=== PATIENT | female | born 1960 | race Caucasian/White ===

== ENCOUNTER 2017-10-18 08:33 | Inpatient (IN) | payer OTHER ==
[2017-10-18 11:12] LABS: BASOPHILS # (AUTO) 0.1 X10^3/uL (0.0-0.1); BASOPHILS % (AUTO) 0.4 % (0.2-1.0); EOSINOPHILS # (AUTO) 0.1 x10^3/uL (0.0-0.2); EOSINOPHILS % (AUTO) 0.9 % (0.9-2.9); HEMATOCRIT 35.1 % (36.0-47.0); HEMOGLOBIN 11.4 g/dL (12.0-16.0); LYMPHOCYTES # (AUTO) 2.7 X10^3/uL (1.3-2.9); LYMPHOCYTES % (AUTO) 22.5 % (21.0-51.0); MEAN CORPUSCULAR HEMOGLOBIN 22.6 pg (27.0-34.0); MEAN CORPUSCULAR HGB CONC 32.5 g/dL (33.0-35.0); MEAN CORPUSCULAR VOLUME 69.4 fL (80.0-100.0); MEAN PLATELET VOLUME 8.2 fL (7.4-11.0); MONOCYTES % (AUTO) 8.6 % (0.0-13.0); NEUTROPHILS # (AUTO) 8.2 x10^3/uL (2.2-4.8); NEUTROPHILS % (AUTO) 67.6 % (42.0-75.0); PLATELET COUNT 244 X10^3/uL (150.0-450.0); RED BLOOD COUNT 5.06 X10^6/uL (3.5-5.4); RED CELL DISTRIBUTION WIDTH 19.3 % (11.6-16.5); WHITE BLOOD COUNT 12.1 X10^3/uL (3.6-10.0)
[2017-10-18 11:25] LABS: ALANINE AMINOTRANSFERASE 23 Units/L (12-78); ALBUMIN 3.2 g/dL (3.4-5.0); ALKALINE PHOSPHATASE 102 Units/L (46-116); ASPARTATE AMINO TRANSFERASE 22 Units/L (15-37); BLOOD UREA NITROGEN 6 mg/dL (7-18); CALCIUM 9.2 mg/dL (8.5-10.1); CARBON DIOXIDE 33.9 mmol/L (21-32); CHLORIDE 103 mmol/L (98-107); COR CA(FOR HYPOALB) 9.8 mg/dL (8.5-10.1); CREATININE 0.74 mg/dL (0.55-1.02); PLATELET MORPHOLOGY COMMENT NORMAL (NORMAL); SODIUM 140 mmol/L (136-145); TOTAL PROTEIN 7.3 g/dL (6.4-8.2); eGFR BLACK RACES > 60 (>60); eGFR NON BLACK RACES > 60 (>60)
[2017-10-18] MEDS: TEFLARO 600 MG in NS 100 ML IV + SPIKE MINIBAG* 100 ML IV SCH ×2 (11:25→20:30)
[2017-10-18 11:26] LABS: ANISOCYTOSIS 2+; HYPOCHROMASIA 1+; MICROCYTOSIS 1+
[2017-10-18] MEDS: NS 1000 ML 1,000 ML IV SCH (11:27)
--- NOTE | 2017-10-18 11:36 | RAD ---
History: COPD and hypertension Study: Portable AP chest Comparison: None Findings: The lungs are clear and the heart and mediastinum are unremarkable. There is no edema or ef fusion. No significant bony abnormality is suggested. Impression: No active cardiopulmonary disease suggested Reported By:
--- NOTE | 2017-10-18 11:57 | CT ---
HISTORY: Right hip abscess, cellulitis Study: CT pelvis without contrast Comparison: None Technique: Axial noncontrast images with coronal and sagittal reformats. Dose reduction procedures we re used with mA/kv adjusted for body size. The examination is limited due to the lack of intravenous contrast. Findings: The bones are osteopenic. Postsurgical changes are present at L4-5 with hardware present. The sacrum and SI joints are intact. The pelvic bones are intact as are the hip joints bilaterally and the proxi mal femurs. In the subcutaneous tissues of the right buttocks and proximal posterior and lateral righ t thigh there is subcutaneous soft tissue stranding suggestive of inflammation likely cellulitis. Wit hin this area there is a calcification likely an old injection granuloma and a focus of more dense ti ssue central to which there may be a small amount of fluid. A small developing abscess is possible. F ollow-up examination with intravenous contrast may be of further diagnostic value IMPRESSION: Findings most consistent with cellulitis involving the right proximal buttock with extension into the posterior and right lateral proximal thigh. A focus of more dense inflammation possibly with a very minimal central fluid collection is identifie d within the subcutaneous tissues of the right lateral buttock. A developing abscess is possible moore leti further evaluation with contrast enhanced examination or possibly ultrasound may be helpful in co nfirming the presence of fluid. Reported By:
[2017-10-18] MEDS ORDERED: TEFLARO IV SCH (12:00)
[2017-10-18 12:29] VITALS: BMI 18.8
[2017-10-18] MEDS ORDERED: METHADONE HCL PO PRN (13:04)
--- NOTE | 2017-10-18 13:12 | DR.H&P ---
H&P - History & Physical for Day of: H&P Date: 10/18/17 - Chief Complaint Chief Complaint: RIGHT HIP ABSCESS - Allergies Allergies/Adverse Reactions: Allergies Allergy/AdvReac Type Severity Reaction Status Date / Time No Known Drug Allergies Allergy Verified 10/18/17 10:13 - History of Present Illness History of Present Illness: 57 WF DIRECT ADMIT FORM DR BAIG OFFICE WITH RIGHT HIP WOUND AND CELLULITIS. PT FAILED OP TREATMENT WITH CO BACTRIM. PT HAS PMH OF CHRONIC PAIN, OA, NIKITA, COPD. PLAN TO ADMIT FOR WOUND CULTURES, IV ATBX AND SURGICAL CONSULT FOR ABSCESS I & D - Past Medical History Past Medical History: Anxiety, Arthritis, COPD, GERD - Past Surgical History Surgical History: Hysterectomy, Other - Family History Family Medical History: [place], Hypertension - Social History Does patient currently use any type of tobacco product: Yes Have you used tobacco products in the last 12 months: Yes Type of Tobacco Use: Cigarettes Does any household member use tobacco: No Alcohol Use: None Drug Use: None - Medications Home Medications: Alprazolam 1 mg PO TID PRN 10/18/17 [History Confirmed 10/18/17] Baclofen 20 mg PO QID PRN 10/18/17 [History Confirmed 10/18/17] Duloxetine HCl [Cymbalta] 60 mg PO DAILY 10/18/17 [History Confirmed 10/18/17] Methadone HCl 10 mg PO QID PRN 10/18/17 [History Confirmed 10/18/17] Pantoprazole Sodium 40 mg [Protonix Tab 40 mg] 40 mg PO DAILY 10/18/17 [History Confirmed 10/18/17] Trazodone HCl [Desyrel] 100 mg PO HS 10/18/17 [History Confirmed 10/18/17] - Review of Systems Constitutional: Fever Eyes: No Symptoms Reported ENT: No Symptoms Reported Respiratory: Cough Cardiovascular: No Symptoms Reported Gastrointestinal: Nausea Genitourinary: No Symptoms Reported Musculoskeletal: Back Pain, Leg Pain Skin: Wound Neurological: No Symptoms Reported - Physical Exam Vital Signs: Temperature 98.1 F Pulse Rate [Right Brachial] 60 Respiratory Rate 16 Blood Pressure [Right Arm] 119/56 O2 Sat by Pulse Oximetry 98 Oriented: Normal Eyes: Normal Ear: Normal Nose: Normal Throat: Normal Respiratory: RLL Diminished, LLL Diminished Cardiovascular: Normal : Normal Auscultation: Bowel Sounds: Normal Palpation: Normal Tenderness: Normal Skin: Red (LOCALIZED 5CM X 5CM AREA OF REDNESS AND INCREASED WARMTH), Tender, Hot, Wound Musculoskeletal: Back:Thoracic, Back:Lumbar, Deformity, Sensory Deficit Psychiatric: Anxiety Affect: Anxious Speech Pattern: Clear, Appropriate - Assessment/Plan (1) Abscess of right hip Status: Acute Plan: ADMIT, IV ATBX THERAPY BLOOD AND WOUND CULTURES. RESUME HOME MEDS, PAIN CONTROL. SURGICAL CONSULT (2) Cellulitis of right hip Status: Acute
[2017-10-18] MEDS ORDERED: XYLOCAINE 1% and EPINEPHRINE 1:100,000 ONE (13:52)
[2017-10-18] MEDS ORDERED: MARCAINE 0.25% INJ ONE (13:53)
[2017-10-18] MEDS ORDERED: LR 1000 ML IV 1,000 ML IV ONE (13:59)
[2017-10-18] MEDS ORDERED: FENTANYL INJ 100 mcg ONE (14:18)
[2017-10-18] MEDS ORDERED: NS IRRIGATION 1000 ML 1,000 ML with BACITRACIN VIAL 50,000 UNT IR ONE ×2 (14:22)
[2017-10-18] MEDS: NICOTINE PATCH TD SCH (15:20)
[2017-10-18] MEDS ORDERED: VERSED ONE (16:01)
[2017-10-18] MEDS ORDERED: DIPRIVAN VIAL ONE (16:01)
[2017-10-18] MEDS ORDERED: LIORESAL PO PRN (17:00)
[2017-10-18] MEDS: DESYREL PO SCH (20:30)
[2017-10-18] MEDS: XANAX PO PRN (20:37)
[2017-10-18 20:39] LABS: BILIRUBIN,URINE NEGATIVE (NEGATIVE); BLOOD/HEMOGLOBIN,URINE NEGATIVE (NEGATIVE); GLUCOSE, URINE NEGATIVE (NEGATIVE); KETONES,URINE NEGATIVE (NEGATIVE); LEUKOCYTE ESTERASE ,URINE 1+ (NEGATIVE); NITRITES,URINE NEGATIVE (NEGATIVE); PROTEIN,URINE NEGATIVE (NEGATIVE); UROBILINOGEN,URINE NORMAL (NORMAL)
[2017-10-18 20:50] LABS: APPEARANCE,URINE CLEAR (CLEAR); BACTERIA,URINE NEGATIVE /HPF (NEGATIVE); COLOR,URINE YELLOW (YELLOW); RBC,URINE NONE SEEN /HPF (NEGATIVE); SQUAMOUS EPITHELIAL CELL,UR MANY /HPF (NEGATIVE)
[2017-10-19 06:08] LABS: BASOPHILS # (AUTO) 0.1 X10^3/uL (0.0-0.1); EOSINOPHILS # (AUTO) 0.1 x10^3/uL (0.0-0.2); EOSINOPHILS % (AUTO) 1.3 % (0.9-2.9); HEMATOCRIT 30.9 % (36.0-47.0); LYMPHOCYTES # (AUTO) 2.8 X10^3/uL (1.3-2.9); MEAN CORPUSCULAR HEMOGLOBIN 22.6 pg (27.0-34.0); MEAN CORPUSCULAR HGB CONC 32.5 g/dL (33.0-35.0); MEAN CORPUSCULAR VOLUME 69.5 fL (80.0-100.0); MEAN PLATELET VOLUME 8.8 fL (7.4-11.0); MONOCYTES # (AUTO) 0.6 x10^3/uL (0.3-0.8); MONOCYTES % (AUTO) 6.2 % (0.0-13.0); NEUTROPHILS # (AUTO) 5.7 x10^3/uL (2.2-4.8); NEUTROPHILS % (AUTO) 61.5 % (42.0-75.0); PLATELET COUNT 183 X10^3/uL (150.0-450.0); RED BLOOD COUNT 4.44 X10^6/uL (3.5-5.4); RED CELL DISTRIBUTION WIDTH 19.1 % (11.6-16.5); WHITE BLOOD COUNT 9.3 X10^3/uL (3.6-10.0)
[2017-10-19 06:30] LABS: ALANINE AMINOTRANSFERASE 22 Units/L (12-78); ALBUMIN 2.5 g/dL (3.4-5.0); ALKALINE PHOSPHATASE 76 Units/L (46-116); ASPARTATE AMINO TRANSFERASE 24 Units/L (15-37); BLOOD UREA NITROGEN 5 mg/dL (7-18); CALCIUM 8.6 mg/dL (8.5-10.1); CARBON DIOXIDE 30.9 mmol/L (21-32); CHLORIDE 107 mmol/L (98-107); COR CA(FOR HYPOALB) 9.8 mg/dL (8.5-10.1); CREATININE 0.68 mg/dL (0.55-1.02); SODIUM 143 mmol/L (136-145); TOTAL PROTEIN 5.9 g/dL (6.4-8.2); eGFR BLACK RACES > 60 (>60); eGFR NON BLACK RACES > 60 (>60)
[2017-10-19 06:37] LABS: PLATELET MORPHOLOGY COMMENT NORMAL (NORMAL)
[2017-10-19 06:38] LABS: ANISOCYTOSIS 2+; HYPOCHROMASIA 1+; MICROCYTOSIS 1+
[2017-10-19] MEDS ORDERED: TORADOL 15 MG VIAL IVP PRN (08:32)
[2017-10-19] MEDS ORDERED: MORPHINE SULFATE INJ 2 MG INJ IVP PRN (08:32)
[2017-10-19] MEDS: METHADONE HCL PO SCH (09:40)
[2017-10-19] MEDS: TEFLARO 600 MG in NS 100 ML IV + SPIKE MINIBAG* 100 ML IV SCH ×2 (09:40→20:17)
[2017-10-19] MEDS: CYMBALTA PO SCH (09:40)
[2017-10-19] MEDS: NICOTINE PATCH TD SCH (09:40)
[2017-10-19] MEDS: PROTONIX TAB 40 MG PO SCH (09:40)
[2017-10-19] MEDS: XANAX PO PRN ×2 (09:41→20:18)
--- NOTE | 2017-10-19 11:47 | PCM.PROG ---
Progress Note - Progress Note for Day of Date: 10/19/17 - Subjective Subjective: PO debridement of 5 x 5 cm stage lll decubitus ulcer Rt hip ,. doing fairly well , no chills or fever . Pt is ambulatory with some limitation because of the back pain . packing was changed . No necrosis or significant drainage . will follow as an op. - Past Medical Family Social History Past Med/Fam/Surg Hx: No changes since H&P Allergies: Allergies No Known Drug Allergies Allergy (Verified 10/18/17 10:13) - Review of Systems ROS: No change since H&P - Vital Signs and I&O's Vital Signs: Temperature 97.5 F Pulse Rate [Right Brachial] 60 Respiratory Rate 18 Blood Pressure [Right Arm] 106/56 O2 Sat by Pulse Oximetry 97 Intake and Output: Intake & Output 10/16/17 10/17/17 10/18/17 10/19/17 11:59 11:59 11:59 11:59 Intake Total 860 Output Total 600 Balance 260 - Physical Exam Oriented: Other (no changes) Eyes: Normal Ear: Normal Nose: Normal Throat: Normal Cardiovascular: Normal : Normal Auscultation: Bowel Sounds: Normal Tenderness: Normal Skin: Red (LOCALIZED 5CM X 5CM AREA OF REDNESS AND INCREASED WARMTH), Tender, Hot, Wound Musculoskeletal: Hip (rt hip ulcer as above , open but no active drainage or tunneling ,), Back:Thoracic, Back:Lumbar, Deformity, Sensory Deficit Psychiatric: Anxiety Affect: Anxious Speech Pattern: Clear, Appropriate - Laboratory and Diagnostics Result Diagrams: 10/19/17 05:29 10/19/17 05:29 Labs: 10/18/17 20:15 Urine,Clean Catch Urine Culture - Preliminary 10/18/17 14:35 Hip - Right Gram Stain - Final 10/18/17 14:35 Hip - Right Wound Culture - Preliminary Laboratory WBC 9.3 X10^3/uL (3.6-10.0) 10/19/17 05:29 RBC 4.44 X10^6/uL (3.5-5.4) 10/19/17 05:29 Hgb 10.0 g/dL (12.0-16.0) L 10/19/17 05:29 Hct 30.9 % (36.0-47.0) L 10/19/17 05:29 MCV 69.5 fL (80.0-100.0) L 10/19/17 05:29 MCH 22.6 pg (27.0-34.0) L 10/19/17 05: MCHC 32.5 g/dL (33.0-35.0) L 10/19/17 05: RDW 19.1 % (11.6-16.5) H 10/19/17 05: Plt Count 183 X10^3/uL (150.0-450.0) 10/19/17 05:29 Plt Count Comment Adequate (ADEQUATE) 10/19/17 05: MPV 8.8 fL (7.4-11.0) 10/19/17 05: Neut % 61.5 % (42.0-75.0) 10/19/17 05: Lymph % 30.0 % (21.0-51.0) 10/19/17 05:29 [place] % 6.2 % (0.0-13.0) 10/19/17 05: Eos % 1.3 % (0.9-2.9) 10/19/17 05:29 Baso % 1.0 % (0.2-1.0) 10/19/17 05:29 Neut # 5.7 x10^3/uL (2.2-4.8) H 10/19/17 05:29 Lymph # 2.8 X10^3/uL (1.3-2.9) 10/19/17 05:29 [place] # 0.6 x10^3/uL (0.3-0.8) 10/19/17 05:29 Eos # 0.1 x10^3/uL (0.0-0.2) 10/19/17 05:29 Baso # 0.1 X10^3/uL (0.0-0.1) 10/19/17 05:29 Absolute Nucleated RBC 0.0 /100WBC 10/19/17 05:29 Plt Morphology Comment Normal (NORMAL) 10/19/17 05:29 RBC Morphology Abnormal (NORMAL) A 10/19/17 05:29 Hypochromasia 1+ A 10/19/17 05:29 Anisocytosis 2+ A 10/19/17 05:29 Microcytosis 1+ A 10/19/17 05:29 ESR 18 MM/HOUR (0-20) 10/18/17 10:20 Sodium 143 mmol/L (136-145) 10/19/17 05:29 Corrected Sodium TNP 10/19/17 05:29 Potassium 3.9 mmol/L (3.5-5.1) 10/19/17 05:29 Chloride 107 mmol/L (98-107) 10/19/17 05:29 Carbon Dioxide 30.9 mmol/L (21-32) 10/19/17 05:29 BUN 5 mg/dL (7-18) L 10/19/17 05:29 Creatinine 0.68 mg/dL (0.55-1.02) 10/19/17 05:29 Est GFR (MDRD) Af Amer > 60 (>60) 10/19/17 05:29 Est GFR (MDRD) Non-Af > 60 (>60) 10/19/17 05:29 Glucose 98 mg/dL (65-99) 10/19/17 05:29 Calcium 8.6 mg/dL (8.5-10.1) 10/19/17 05:29 Corrected Calcium 9.8 mg/dL (8.5-10.1) 10/19/17 05:29 Total Bilirubin 0.20 mg/dL (0.2-1.0) 10/19/17 05:29 AST 24 Units/L (15-37) 10/19/17 05:29 ALT 22 Units/L (12-78) 10/19/17 05:29 Alkaline Phosphatase 76 Units/L (46-116) 10/19/17 05:29 C-Reactive Protein 1.00 mg/L (0-3.0) 10/18/17 10:20 Total Protein 5.9 g/dL (6.4-8.2) L 10/19/17 05:29 Albumin 2.5 g/dL (3.4-5.0) L 10/19/17 05:29 Globulin 3.4 g/dL (2.5-4.5) 10/19/17 05:29 Albumin/Globulin Ratio 0.7 Ratio (1.1-2.1) L 10/19/17 05:29 Specimen Type Catherized urine 10/18/17 20:15 Urine Color Yellow (YELLOW) 10/18/17 20:15 Urine Appearance Clear (CLEAR) 10/18/17 20:15 Urine pH 7.0 (5.0 - 8.0) 10/18/17 20:15 Ur Specific [place] 1.010 (1.000-1.030) 10/18/17 20:15 Urine Protein Negative (NEGATIVE) 10/18/17 20:15 Urine Glucose (UA) Negative (NEGATIVE) 10/18/17 20:15 Urine Ketones Negative (NEGATIVE) 10/18/17 20:15 Urine Occult Blood Negative (NEGATIVE) 10/18/17 20:15 Urine Nitrite Negative (NEGATIVE) 10/18/17 20:15 Urine Bilirubin Negative (NEGATIVE) 10/18/17 20:15 Urine Urobilinogen Normal (NORMAL) 10/18/17 20:15 Ur Leukocyte Esterase 1+ (NEGATIVE) 10/18/17 20:15 Urine RBC None seen /HPF (NEGATIVE) 10/18/17 20:15 Urine WBC 0-3 /HPF (NEGATIVE) 10/18/17 20:15 Ur Squamous Epith Cells Many /HPF (NEGATIVE) 10/18/17 20:15 Urine Bacteria Negative /HPF (NEGATIVE) 10/18/17 20:15 Ur Culture Indicated? Yes/culture set up 10/18/17 20:15 Tissue Pathology To follow 10/18/17 14:45 - Plan (1) Abscess of right hip Status: Acute Plan: will follow as out PT
[2017-10-19] MEDS: NS 1000 ML 1,000 ML IV SCH (12:27)
[2017-10-19] MEDS: DESYREL PO SCH (20:17)
[2017-10-20] MEDS: METHADONE HCL PO SCH ×2 (05:17→08:02)
[2017-10-20] MEDS ORDERED: TORADOL 60 MG VIAL ONE (05:23)
[2017-10-20 06:38] LABS: BASOPHILS # (AUTO) 0.1 X10^3/uL (0.0-0.1); BASOPHILS % (AUTO) 1.2 % (0.2-1.0); EOSINOPHILS # (AUTO) 0.1 x10^3/uL (0.0-0.2); EOSINOPHILS % (AUTO) 1.2 % (0.9-2.9); HEMOGLOBIN 9.8 g/dL (12.0-16.0); LYMPHOCYTES # (AUTO) 2.6 X10^3/uL (1.3-2.9); LYMPHOCYTES % (AUTO) 25.2 % (21.0-51.0); MEAN CORPUSCULAR HEMOGLOBIN 22.7 pg (27.0-34.0); MEAN CORPUSCULAR HGB CONC 32.6 g/dL (33.0-35.0); MEAN CORPUSCULAR VOLUME 69.5 fL (80.0-100.0); MEAN PLATELET VOLUME 8.7 fL (7.4-11.0); MONOCYTES # (AUTO) 0.8 x10^3/uL (0.3-0.8); MONOCYTES % (AUTO) 7.3 % (0.0-13.0); NEUTROPHILS # (AUTO) 6.8 x10^3/uL (2.2-4.8); NEUTROPHILS % (AUTO) 65.1 % (42.0-75.0); PLATELET COUNT 146 X10^3/uL (150.0-450.0); RED BLOOD COUNT 4.32 X10^6/uL (3.5-5.4); RED CELL DISTRIBUTION WIDTH 19.4 % (11.6-16.5); WHITE BLOOD COUNT 10.4 X10^3/uL (3.6-10.0)
[2017-10-20 06:40] LABS: ALANINE AMINOTRANSFERASE 13 Units/L (12-78); ALBUMIN 2.3 g/dL (3.4-5.0); ALKALINE PHOSPHATASE 78 Units/L (46-116); ASPARTATE AMINO TRANSFERASE 16 Units/L (15-37); BLOOD UREA NITROGEN 7 mg/dL (7-18); CALCIUM 8.1 mg/dL (8.5-10.1); CARBON DIOXIDE 28.7 mmol/L (21-32); CHLORIDE 108 mmol/L (98-107); COR CA(FOR HYPOALB) 9.5 mg/dL (8.5-10.1); CREATININE 0.66 mg/dL (0.55-1.02); SODIUM 142 mmol/L (136-145); TOTAL PROTEIN 5.6 g/dL (6.4-8.2); eGFR BLACK RACES > 60 (>60); eGFR NON BLACK RACES > 60 (>60)
[2017-10-20 07:19] LABS: ANISOCYTOSIS 2+; HYPOCHROMASIA 1+; MICROCYTOSIS 1+; PLATELET MORPHOLOGY COMMENT NORMAL (NORMAL)
[2017-10-20] MEDS: CYMBALTA PO SCH (08:02)
[2017-10-20] MEDS: XANAX PO PRN (08:03)
[2017-10-20] MEDS: PROTONIX TAB 40 MG PO SCH (08:03)
[2017-10-20] MEDS: NICOTINE PATCH TD SCH (08:03)
[2017-10-20] MEDS: TEFLARO 600 MG in NS 100 ML IV + SPIKE MINIBAG* 100 ML IV SCH (08:03)
[2017-10-20 12:11] VITALS: BP 113/58
[2017-10-20] MEDS: NS 1000 ML 1,000 ML IV SCH (14:05)
== END 2017-10-20 14:50 | disposition home health service (06) | DRG 579 ==
LOC: UNDOADMIN 08:33 → OBS 08:33
PROVIDERS: ADMIT Internal Medicine; ATTEND Internal Medicine
PROC: 0KBN0ZZ Excision of Right Hip Muscle, Open Approach (ICD-10-PCS; principal; 2017-10-18 14:00)
DX: L02.415 Cutaneous abscess of right lower limb (principal); L89.213 Pressure ulcer of right hip, stage 3; L03.115 Cellulitis of right lower limb; R53.1 Weakness; E86.0 Dehydration; D72.828 Other elevated white blood cell count; J44.9 Chronic obstructive pulmonary disease, unspecified; F41.8 Other specified anxiety disorders
CPT/HCPCS: 36415; 71045; 72192; 80053; 81001; 85025; 85652; 86140; 87040; 87070; 87075; 87086; 87088; 87186; 87205; 88304; A4222; S0020; S0109; J0712; J1885; J2001; J2250; J2270; J3010; J3490; J7120

== ENCOUNTER → 2017-11-14 | Outpatient (CLI) | payer OTHER ==
[2017-10-20 12:11] VITALS: BP 113/58
[2017-11-14 12:24] LABS: BASOPHILS # (AUTO) 0.2 X10^3/uL (0.0-0.1); BASOPHILS % (AUTO) 2.2 % (0.2-1.0); EOSINOPHILS # (AUTO) 0.1 x10^3/uL (0.0-0.2); EOSINOPHILS % (AUTO) 1.5 % (0.9-2.9); HEMATOCRIT 32.2 % (36.0-47.0); HEMOGLOBIN 10.3 g/dL (12.0-16.0); LYMPHOCYTES # (AUTO) 2.9 X10^3/uL (1.3-2.9); LYMPHOCYTES % (AUTO) 30.7 % (21.0-51.0); MEAN CORPUSCULAR HEMOGLOBIN 22.6 pg (27.0-34.0); MEAN CORPUSCULAR VOLUME 70.5 fL (80.0-100.0); MEAN PLATELET VOLUME 8.5 fL (7.4-11.0); MONOCYTES # (AUTO) 0.8 x10^3/uL (0.3-0.8); MONOCYTES % (AUTO) 8.8 % (0.0-13.0); NEUTROPHILS # (AUTO) 5.3 x10^3/uL (2.2-4.8); NEUTROPHILS % (AUTO) 56.8 % (42.0-75.0); PLATELET COUNT 192 X10^3/uL (150.0-450.0); RED BLOOD COUNT 4.56 X10^6/uL (3.5-5.4); RED CELL DISTRIBUTION WIDTH 18.9 % (11.6-16.5); WHITE BLOOD COUNT 9.3 X10^3/uL (3.6-10.0)
[2017-11-14 12:40] LABS: ALANINE AMINOTRANSFERASE 17 Units/L (12-78); ALBUMIN 2.8 g/dL (3.4-5.0); ALKALINE PHOSPHATASE 95 Units/L (46-116); ASPARTATE AMINO TRANSFERASE 20 Units/L (15-37); BLOOD UREA NITROGEN 8 mg/dL (7-18); CALCIUM 8.5 mg/dL (8.5-10.1); CARBON DIOXIDE 33.9 mmol/L (21-32); CHLORIDE 106 mmol/L (98-107); COR CA(FOR HYPOALB) 9.5 mg/dL (8.5-10.1); CREATININE 0.77 mg/dL (0.55-1.02); SODIUM 142 mmol/L (136-145); TOTAL PROTEIN 6.4 g/dL (6.4-8.2); eGFR BLACK RACES > 60 (>60); eGFR NON BLACK RACES > 60 (>60)
[2017-11-14 12:41] LABS: HYPOCHROMASIA 1+; PLATELET MORPHOLOGY COMMENT NORMAL (NORMAL)
[2017-11-14 12:42] LABS: MICROCYTOSIS 1+
== END ==
LOC: LAB 11:58
PROVIDERS: ATTEND Surgery
DX: Z01.818 Encounter for other preprocedural examination (principal); L89.213 Pressure ulcer of right hip, stage 3
CPT/HCPCS: 36415; 80053; 85025

== ENCOUNTER 2017-11-17 07:25 | Day surgery (SDC) | payer OTHER, MEDICAID ==
[~2017-11-17 07:25] MED LIST: NS 1000 ML 1,000 ML ONE; ROCEPHIN 1 GM IV PREMIX 1 GM/50 ML IV.SOLN. IV ONE
[2017-11-17] MEDS ORDERED: MARCAINE 0.25% INJ ONE (07:28)
[2017-11-17] MEDS ORDERED: NS IRRIGATION 1000 ML 1,000 ML with BACITRACIN VIAL 50,000 UNT IR ONE ×2 (10:10)
[2017-11-17] MEDS ORDERED: PERCOCET TAB 5/325 MG ONE (10:40)
[2017-11-17 11:12] VITALS: BP 126/64
[2017-11-17] MEDS ORDERED: VERSED ONE (13:43)
[2017-11-17] MEDS ORDERED: DIPRIVAN VIAL ONE (13:43)
== END 2017-11-17 10:20 | disposition home or self-care (01) ==
LOC: SURG1 07:25
PROVIDERS: ATTEND Surgery
PROC: 0JBL0ZZ Excision of Right Upper Leg Subcutaneous Tissue and Fascia, Open Approach (ICD-10-PCS; principal; 2017-11-17 10:00)
DX: L89.213 Pressure ulcer of right hip, stage 3 (principal); B95.7 Other staphylococcus as the cause of diseases classified elsewhere
CPT/HCPCS: 87070; 87075; 87077; 87186; 87205; A4222; S0020; J0696; J2250; J3490

== ENCOUNTER 2018-01-10 12:46 | Day surgery (SDC) | payer OTHER, MEDICAID ==
[2018-01-10] MEDS ORDERED: XYLOCAINE 1 % (PLAIN) ONE (13:12)
[2018-01-10] MEDS ORDERED: MARCAINE 0.25% INJ ONE ×2 (13:12→13:41)
[2018-01-10] MEDS ORDERED: KENALOG INJ 40 MG IM ONE ×2 (13:12→13:41)
--- NOTE | 2018-01-10 13:27 | DR.H&P ---
H&P - History & Physical for Day of: H&P Date: 01/10/18 - Chief Complaint Chief Complaint: my back hurts and goes to my left foot - Allergies Allergies/Adverse Reactions: Allergies Allergy/AdvReac Type Severity Reaction Status Date / Time No Known Drug Allergies Allergy Verified 10/18/17 10:13 - History of Present Illness History of Present Illness: long h/o above cc. c/o numbness, has fallen previosly. DCS placed "years ago", since removed. "many" previous epidural injections with little relief. 2-3 months relief. - Past Medical History Past Medical History: Anxiety, Arthritis, COPD, GERD - Past Surgical History Surgical History: Hysterectomy, Other - Family History Family Medical History: [place], Hypertension - Social History Does patient currently use any type of tobacco product: Yes Have you used tobacco products in the last 12 months: Yes Type of Tobacco Use: Cigarettes How many years tobacco product used: 30 Packs per day or dips/chews per day: 3 cigarettes daily Does any household member use tobacco: Yes Alcohol Use: None Drug Use: None - Review of Systems Musculoskeletal: Leg Pain Skin: Wound (right hip ulcer, healing) - Physical Exam Vital Signs: Temperature 98.1 F Pulse Rate 69 Respiratory Rate 16 Blood Pressure [Right Arm] 113/58 Blood Pressure 123/59 O2 Sat by Pulse Oximetry 98 Musculoskeletal: Leg (pos slr and patricks left), Back:Thoracic (no pain on palpation), Back:Lumbar (pain on palpation lumbo-sacral area) Psychiatric: Normal Mood Description: Calm - Assessment/Plan (1) Sciatica of left side associated with disorder of lumbosacral spine Status: Acute Plan: L5-S1 MYA with flouroscopic guadance. possible L4-5 if previous surgery impedes effort.
[2018-01-10 14:08] VITALS: BP 125/60
== END 2018-01-10 14:12 | disposition home or self-care (01) | DRG 552 ==
LOC: SURG1 12:46
PROVIDERS: ATTEND Surgery
PROC: 3E0R3BZ Introduction of Anesthetic Agent into Spinal Canal, Percutaneous Approach (ICD-10-PCS; 2018-01-10)
PROC: 3E0R33Z Introduction of Anti-inflammatory into Spinal Canal, Percutaneous Approach (ICD-10-PCS; principal; 2018-01-10 12:45)
DX: M54.32 Sciatica, left side (principal)
CPT/HCPCS: 62323; 76000; A4222; S0020; J2001; J3301

== ENCOUNTER 2019-07-17 23:22 | Inpatient (IN) ==
--- NOTE | 2019-07-18 00:07 | DR.EXTPAIN ---
HPI Time seen Time Seen by Provider: 07/18/19 00:07 PCP Primary Care Physician: STEFANY Complaint/Symptoms Chief Complaint:: REPORT CALLED FROM FACILITY [facility] PT COME IN D/T DRAINAGE TO RIGHT HIP AND WANTED TO FOLLOW UP WITH DR KELLEY ABOUT IT GIVEN TORADOL AND ROCEPHIN 1 GM PLACED NOTED TO BE SMALLER THAN A DIME, UPON RECIEVING PATIENT SHE STATES THAT RIGHT HIP OPENED UP FOR 2 MONTHS AND WAS DRAINING AND ISNT DRAINING NOW BUT THERE IS A SMALL OPEN AREA THAT HAS BEEN OPEN FOR 3 DAYS NOW, NO COMPLAINTS OF PAIN , PT HAS TO BE RE DIRECTED IN TRIAGE SHE KEEPS FALLING ASLEEP, ASKED PT ABOUT RECENT MEDICATIONS TAKEN AND PT STATES NO BUT DID TAKE HOME MEDS AROUND 2 PM. NO DISTRESS IN TRIAGE, MD INFORMED. Self Treatment fo Chief Complaint: HOME MEDS AT 2 PM- TRAZODONE, METHADONE, BACLOFEN, REQUIP AND PATIENT STATES THEY GAVE HER TORADOL AT FACILITY BEFORE SHE LEFT. Source History Provided: Patient and EMS Mode of arrival Mode of Arrival: EMS Timing Onset of Chief Complaint: 07/17/19 PMH PMH Past Medical History: Yes Past Medical History: Anxiety, Arthritis, COPD and GERD Past Surgical History: Yes Surgical History: Abdominal Surgery, Hysterectomy, Tonsillectomy and Other Past Surgical History Comment: COLON REMOVAL?? SUB CATH? Family History History of Family Medical Conditions: Yes Family Medical History: [place] and Hypertension Social History Does patient currently use any type of tobacco product: Yes Have you used tobacco products in the last 12 months: Yes Type of Tobacco Use: Cigarettes Does any household member use tobacco: No Alcohol Use: None Do you use any recreational Drugs:: No Lives With: Spouse Lives Where: Home infectious screening In the last 2 months have you had wt loss of >10#?: NO Have you had fever, night sweats or hemotysis?: No Have you traveled outside the country in the last 6 months?: No Isolation: Standard PE Vital Signs Vitals: Temperature 98.2 F Pulse Rate [Left] 61 Pulse Rate 63 Respiratory Rate 16 Blood Pressure [Right Arm] 89/49 Blood Pressure 122/59 O2 Sat by Pulse Oximetry 98 Opioid Opioid Risk Tool Age (Juan box if 16-45): No Total: 0 Total Score Risk Category: Low Risk Copyright: Jeffrey HALL predicting aberrant behaviors
[2019-07-18] MEDS ORDERED: NS 1000 ML 1,000 ML ONE (00:31)
[2019-07-18] MEDS ORDERED: NS 1000 ML 1,000 ML IV ONE (00:31)
[2019-07-18] MEDS ORDERED: ROCEPHIN VIAL 1 GRAM 1 G in NS 100 ML IV + SPIKE MINIBAG* 100 ML IV SCH (03:46)
[2019-07-18] MEDS ORDERED: ZOFRAN TAB 4 MG PO PRN (03:48)
[2019-07-18] MEDS ORDERED: MORPHINE SULFATE INJ 2 MG INJ IVP PRN (03:48)
[2019-07-18] MEDS ORDERED: ROCEPHIN VIAL 1 GRAM ONE (04:02)
[2019-07-18] MEDS: D5 1/2 NS 1000 ML 1,000 ML IV SCH ×3 (04:09→21:02)
[2019-07-18 05:12] VITALS: BMI 17.7
[2019-07-18 05:31] LABS: WHITE BLOOD COUNT 9.2 X10^3/uL (3.6-10.0)
[2019-07-18 05:32] LABS: BASOPHILS % (AUTO) 0.3 % (0.2-1.0); EOSINOPHILS % (AUTO) 0.4 % (0.9-2.9); HEMATOCRIT 33.3 % (36.0-47.0); HEMOGLOBIN 10.9 g/dL (12.0-16.0); LYMPHOCYTES # (AUTO) 0.9 X10^3/uL (1.3-2.9); LYMPHOCYTES % (AUTO) 9.5 % (21.0-51.0); MEAN CORPUSCULAR HEMOGLOBIN 24.7 pg (27.0-34.0); MEAN CORPUSCULAR HGB CONC 32.8 g/dL (33.0-35.0); MEAN CORPUSCULAR VOLUME 75.3 fL (80.0-100.0); MEAN PLATELET VOLUME 8.6 fL (7.4-11.0); MONOCYTES # (AUTO) 0.9 x10^3/uL (0.3-0.8); MONOCYTES % (AUTO) 9.3 % (0.0-13.0); NEUTROPHILS # (AUTO) 7.4 x10^3/uL (2.2-4.8); NEUTROPHILS % (AUTO) 80.5 % (42.0-75.0); PLATELET COUNT 141 X10^3/uL (150.0-450.0); RED BLOOD COUNT 4.42 X10^6/uL (3.5-5.4); RED CELL DISTRIBUTION WIDTH 16.9 % (11.6-16.5)
[2019-07-18 05:46] LABS: ALANINE AMINOTRANSFERASE 21 Units/L (12-78); ALBUMIN 2.6 g/dL (3.4-5.0); ALKALINE PHOSPHATASE 138 Units/L (46-116); ASPARTATE AMINO TRANSFERASE 33 Units/L (15-37); BLOOD UREA NITROGEN 7 mg/dL (7-18); CALCIUM 8.6 mg/dL (8.5-10.1); CARBON DIOXIDE 28.4 mmol/L (21-32); CHLORIDE 101 mmol/L (98-107); COR CA(FOR HYPOALB) 9.7 mg/dL (8.5-10.1); CREATININE 0.71 mg/dL (0.55-1.02); SODIUM 137 mmol/L (136-145); TOTAL PROTEIN 6.4 g/dL (6.4-8.2); eGFR NON BLACK RACES > 60 (>60)
[2019-07-18 05:52] LABS: HYPOCHROMASIA SLIGHT; PLATELET MORPHOLOGY COMMENT NORMAL (NORMAL)
--- NOTE | 2019-07-18 08:49 | DR.H&P ---
H&P - History & Physical for Day of: H&P Date: 07/18/19 - Chief Complaint Chief Complaint: right hip pain, open wound right hip - History of Present Illness History of Present Illness: PT IS 59 WF ER ADMISSION AFTER PRESENTING WITH REPORT CALLED FROM FACILITY [facility], STATES PT COME IN D/T DRAINAGE TO RIGHT HIP AND WANTED TO FOLLOW UP WITH DR KELLEY ABOUT IT GIVEN TORADOL AND ROCEPHIN 1 GM PLACED NOTED TO BE SMALLER THAN A DIME, UPON RECIEVING PATIENT SHE STATES THAT RIGHT HIP OPENED UP FOR 2 MONTHS AND WAS DRAINING AND ISNT DRAINING NOW BUT THERE IS A SMALL OPEN AREA THAT HAS BEEN OPEN FOR 3 DAYS NOW, NO COMPLAINTS OF PAIN. PT HAS PMH OF SEVERE OA, LUMBAR SPINAL STENOSIS/DDD, NIKITA/MDD, NEUROGENIC BLADDER. PT HAS PREVIOUS HAD TO HAVE I&D OF LARGE ABSCESS TO RIGHT HIP, WHICH HEALED WELL IN THE PAST. PT ADMITTED FOR TREATMENT AND EVALUATION OF ACUTE HIP PAIN, OPEN WOUND. - Past Medical History Past Medical History: Anxiety, Arthritis, COPD, Depression, GERD - Past Surgical History Surgical History: Abdominal Surgery, Appendectomy, Tonsillectomy - Family History Family Medical History: Coronary Artery Disease, Hypertension - Social History Does patient currently use any type of tobacco product: Yes Have you used tobacco products in the last 12 months: Yes Type of Tobacco Use: Cigarettes How many years tobacco product used: 25 Does any household member use tobacco: Yes Alcohol Use: None Drug Use: Prescription Drugs - Medications Home Medications: No Known Drug Allergies Allergy (Verified 07/17/19 23:49) CONTINUE taking the following medications duloxetine [Cymbalta] 60 mg PO DAILY 07/17/19 [History] trazodone 200 mg PO HS 07/17/19 [History] - Review of Systems Constitutional: Weakness, Malaise Eyes: No Symptoms Reported ENT: No Symptoms Reported Respiratory: No Symptoms Reported Cardiovascular: No Symptoms Reported Gastrointestinal: Nausea Genitourinary: Incontinence, Retention Musculoskeletal: Back Pain, Leg Pain, Other (RIGHT HIP PAIN) Skin: Wound (RIGHT HIP) Neurological: Weakness - Physical Exam Vital Signs: Temperature 98.6 F Pulse Rate [Left] 56 Pulse Rate 74 Respiratory Rate 18 Blood Pressure [Right Arm] 102/59 Blood Pressure 132/65 O2 Sat by Pulse Oximetry 96 Oriented: Normal Eyes: Normal Ear: Normal Nose: Normal Throat: Normal Respiratory: RLL Diminished, LLL Diminished Cardiovascular: Normal. negative: Edema Auscultation: Bowel Sounds: Normal Palpation: Normal Tenderness: Normal Skin: Decreased Turgur, Wound (RIGHT POSTERIOR HIP) Musculoskeletal: Right, Hip, Back:Thoracic, Back:Lumbar, Tender, Deformity, Motor Deficit (BILATERAL LOWER EXTREMITY WEAKNESS, CHRONIC), Sensory Deficit Psychiatric: Depression Mood Description: Sad Affect: Depressed Speech Pattern: Clear, Appropriate - Assessment/Plan (1) Abscess of right hip Status: Acute Plan: ADMIT, BC ON ADMISSION. XRAY RIGHT HIP, IV HYDRATION. PRN INTERMITTEN CATH, IV ANTIBIOTICS. WOUND CARE. CXR ON ADMISSION (2) Cellulitis of right hip Status: Acute (3) Lumbar spinal stenosis Status: Acute (4) Depression Status: Acute - Allergies Allergies/Adverse Reactions: Allergies Allergy/AdvReac Type Severity Reaction Status Date / Time No Known Drug Allergies Allergy Verified 07/17/19 23:49
[2019-07-18] MEDS: LOVENOX INJ 40 MG SYR SC SCH (10:24)
[2019-07-18] MEDS: PROTONIX TAB 40 MG PO SCH (10:24)
[2019-07-18] MEDS: CYMBALTA PO SCH (10:24)
[2019-07-18] MEDS: XANAX PO SCH ×2 (10:24→20:13)
--- NOTE | 2019-07-18 10:27 | RAD ---
HISTORY: COPD, hypertension Study: Single-view chest Comparison: 10/18/2017. Findings: Trachea is midline. Heart size is normal. There is again hyperinflation of the lungs with increased interstitial markings bilaterally, compatible with COPD. No consolidation, CHF, pleural fluid or pneumothorax is seen. Osseous structures are intact. IMPRESSION: COPD without acute abnormality. Reported By:
[2019-07-18] MEDS ORDERED: KLOR-CON PO PRN (11:59)
[2019-07-18] MEDS ORDERED: MICRO K EXTEN CAP 10 MEQ PO PRN (11:59)
[2019-07-18] MEDS ORDERED: K-RIDER 10 MEQ/NS 100 ML 10 MEQ/100 ML BAG IV PRN (12:49)
[2019-07-18] MEDS: K-DUR TAB 20 MEQ PO PRN ×3 (13:42→20:13)
[2019-07-18] MEDS: MAGNESIUM SULFATE 1 GRAM/100 mL PREMIX 1 GM/100 ML BAG IV PRN ×2 (13:43→15:03)
[2019-07-18] MEDS: METHADONE HCL PO SCH ×2 (14:34→21:00)
--- NOTE | 2019-07-18 16:44 | CT ---
CT OF THE RIGHT UPPER CONTRAST Clinical indication: Abscess Comparison: 10/18/2017 CT Procedure: Axial images of the right hip were obtained. Sagittal coronal reformats were performed. Dose reduction techniques including Automated Exposure Control (AEC) and adjustment of mA and kV were utlized. Findings: Fluid collection extending to the skin measuring 6.8 x 6.0 cm. This appears to involve the trochanteric bursa. The joint appears to be uninvolved. No definite bony erosion or periosteal reaction. Impression: Probable septic bursitis with subsequent subcutaneous abscess formation and decompression through the skin. There still remains a moderate amount of fluid within the collection/bursa. No definite evidence of osteomyelitis at this time. Reported By:
[2019-07-18] MEDS: DESYREL PO SCH (20:13)
[2019-07-19] MEDS: MORPHINE SULFATE INJ 2 MG INJ IVP PRN (01:18)
[2019-07-19] MEDS: D5 1/2 NS 1000 ML 1,000 ML IV SCH ×6 (01:22→23:53)
[2019-07-19 05:16] LABS: BASOPHILS % (AUTO) 0.3 % (0.2-1.0); EOSINOPHILS % (AUTO) 0.4 % (0.9-2.9); HEMOGLOBIN 9.1 g/dL (12.0-16.0); LYMPHOCYTES # (AUTO) 1.4 X10^3/uL (1.3-2.9); LYMPHOCYTES % (AUTO) 23.1 % (21.0-51.0); MEAN CORPUSCULAR HGB CONC 33.6 g/dL (33.0-35.0); MEAN CORPUSCULAR VOLUME 74.6 fL (80.0-100.0); MEAN PLATELET VOLUME 8.8 fL (7.4-11.0); MONOCYTES # (AUTO) 0.7 x10^3/uL (0.3-0.8); MONOCYTES % (AUTO) 11.4 % (0.0-13.0); NEUTROPHILS % (AUTO) 64.8 % (42.0-75.0); PLATELET COUNT 127 X10^3/uL (150.0-450.0); RED BLOOD COUNT 3.62 X10^6/uL (3.5-5.4); RED CELL DISTRIBUTION WIDTH 17.1 % (11.6-16.5); WHITE BLOOD COUNT 6.1 X10^3/uL (3.6-10.0)
[2019-07-19] MEDS: ROCEPHIN VIAL 1 GRAM 1 G in NS 100 ML IV + SPIKE MINIBAG* 100 ML IV SCH (05:26)
[2019-07-19] MEDS: METHADONE HCL PO SCH ×3 (05:26→20:59)
[2019-07-19 05:34] LABS: ALANINE AMINOTRANSFERASE 13 Units/L (12-78); ALBUMIN 1.9 g/dL (3.4-5.0); ALKALINE PHOSPHATASE 121 Units/L (46-116); ASPARTATE AMINO TRANSFERASE 19 Units/L (15-37); BLOOD UREA NITROGEN 4 mg/dL (7-18); CALCIUM 7.9 mg/dL (8.5-10.1); CARBON DIOXIDE 29.3 mmol/L (21-32); CHLORIDE 105 mmol/L (98-107); COR CA(FOR HYPOALB) 9.6 mg/dL (8.5-10.1); COR NA(FOR HYPERGLY) 139 mmol/L (136-145); CREATININE 0.58 mg/dL (0.55-1.02); MAGNESIUM 1.9 mg/dL (1.7-2.9); SODIUM 139 mmol/L (136-145); TOTAL PROTEIN 5.2 g/dL (6.4-8.2); eGFR NON BLACK RACES > 60 (>60)
[2019-07-19 05:49] LABS: PLATELET MORPHOLOGY COMMENT NORMAL (NORMAL)
[2019-07-19 05:50] LABS: HYPOCHROMASIA 1+
--- NOTE | 2019-07-19 10:18 | DR.PROGNOT ---
Hospital Progress Notes - Progress Note for Day of: Progress Note Date: 07/19/19 - Chief Complaint Chief Complaint: c/o pain Rt hip . CT Rt hip showed deep abscess possible septic bursitis . no evidence of osteomyelitis . stable VS , no systemic infection . - Past Medical Family Social History Past Med/Fam/Surg Hx: No changes since H&P Allergies: Allergies No Known Drug Allergies Allergy (Verified 07/17/19 23:49) - Review Of Systems ROS: No change since H&P - Vital Signs Vital Signs: Temperature 98.9 F Pulse Rate [Left] 68 Pulse Rate 74 Respiratory Rate 16 Blood Pressure [Right Arm] 124/60 Blood Pressure 132/65 O2 Sat by Pulse Oximetry 93 - Physical Exam Oriented: Normal Eyes: Normal Ear: Normal Nose: Normal Throat: Normal Cardiovascular: Normal. negative: Edema GI:Auscultation: Normal GI:Palpation: Normal GI: Tenderness: Normal Skin: Decreased Turgur, Wound (Rt hip ulcer 2x2cm with deep fluctuation ) Musculoskeletal: Right, Hip, Back:Thoracic, Back:Lumbar, Tender, Deformity, Motor Deficit (BILATERAL LOWER EXTREMITY WEAKNESS, CHRONIC), Sensory Deficit Psychiatric: Depression Mood Description: Sad Affect: Depressed Speech Pattern: Clear, Appropriate - Laboratory and Diagnostics Result Diagrams: 07/19/19 03:54 07/19/19 03:54 Labs: Laboratory WBC 6.1 X10^3/uL (3.6-10.0) 07/19/19 03:54 RBC 3.62 X10^6/uL (3.5-5.4) 07/19/19 03:54 Hgb 9.1 g/dL (12.0-16.0) L 07/19/19 03:54 Hct 27.0 % (36.0-47.0) L 07/19/19 03:54 MCV 74.6 fL (80.0-100.0) L 07/19/19 03:54 MCH 25.0 pg (27.0-34.0) L 07/19/19 03:54 MCHC 33.6 g/dL (33.0-35.0) 07/19/19 03:54 RDW 17.1 % (11.6-16.5) H 07/19/19 03:54 Plt Count 127 X10^3/uL (150.0-450.0) L 07/19/19 03:54 Plt Count Comment Adequate (ADEQUATE) 07/19/19 03:54 MPV 8.8 fL (7.4-11.0) 07/19/19 03:54 Neut % (Auto) 64.8 % (42.0-75.0) 07/19/19 03:54 Lymph % (Auto) 23.1 % (21.0-51.0) 07/19/19 03:54 [place] % (Auto) 11.4 % (0.0-13.0) 07/19/19 03:54 Eos % (Auto) 0.4 % (0.9-2.9) L 07/19/19 03:54 Baso % (Auto) 0.3 % (0.2-1.0) 07/19/19 03:54 Neut # (Auto) 4.0 x10^3/uL (2.2-4.8) 07/19/19 03:54 Lymph # (Auto) 1.4 X10^3/uL (1.3-2.9) 07/19/19 03:54 [place] # (Auto) 0.7 x10^3/uL (0.3-0.8) 07/19/19 03:54 Eos # (Auto) 0.0 x10^3/uL (0.0-0.2) 07/19/19 03:54 Baso # (Auto) 0.0 X10^3/uL (0.0-0.1) 07/19/19 03:54 Absolute Nucleated RBC 0.0 /100WBC 07/19/19 03:54 Plt Morphology Comment Normal (NORMAL) 07/19/19 03:54 RBC Morphology Abnormal (NORMAL) A 07/19/19 03:54 Hypochromasia 1+ A 07/19/19 03:54 Sodium 139 mmol/L (136-145) 07/19/19 03:54 Corrected Sodium 139 mmol/L (136-145) 07/19/19 03:54 Potassium 3.8 mmol/L (3.5-5.1) 07/19/19 03:54 Chloride 105 mmol/L (98-107) 07/19/19 03:54 Carbon Dioxide 29.3 mmol/L (21-32) 07/19/19 03:54 BUN 4 mg/dL (7-18) L 07/19/19 03:54 Creatinine 0.58 mg/dL (0.55-1.02) 07/19/19 03:54 Est GFR (MDRD) Af Amer > 60 (>60) 07/19/19 03:54 Est GFR (MDRD) Non-Af > 60 (>60) 07/19/19 03:54 Glucose 111 mg/dL (65-99) H 07/19/19 03:54 Calcium 7.9 mg/dL (8.5-10.1) L 07/19/19 03:54 Corrected Calcium 9.6 mg/dL (8.5-10.1) 07/19/19 03:54 Magnesium 1.9 mg/dL (1.7-2.9) 07/19/19 03:54 Total Bilirubin 0.20 mg/dL (0.2-1.0) 07/19/19 03:54 AST 19 Units/L (15-37) 07/19/19 03:54 ALT 13 Units/L (12-78) 07/19/19 03:54 Alkaline Phosphatase 121 Units/L (46-116) H 07/19/19 03:54 Total Protein 5.2 g/dL (6.4-8.2) L 07/19/19 03:54 Albumin 1.9 g/dL (3.4-5.0) L 07/19/19 03:54 Globulin 3.3 g/dL (2.5-4.5) 07/19/19 03:54 Albumin/Globulin Ratio 0.6 Ratio (1.1-2.1) L 07/19/19 03:54 - Assessment and Plan 1: Rt hip skin abscess . with septic bursitis . chronic Rt hip ulcer . malnutrition . confinement to bed and wheelchair with limited ambulation ,. spinal stenosis and radiculopathy . will debride the ulcer and drain the abscess in the OR. - Problem Patient Problems: Patient Problems Lumbar spinal stenosis (Acute) M48.061 Depression (Acute) F32.9
[2019-07-19] MEDS ORDERED: ALBUMIN HUMAN 25%- 100 ML 100 ML IV ONE (10:24)
[2019-07-19] MEDS ORDERED: BACITRACIN VIAL ONE (11:34)
[2019-07-19] MEDS ORDERED: LR 1000 ML IV 1,000 ML IV ONE (12:19)
[2019-07-19] MEDS ORDERED: XYLOCAINE 1 % (PLAIN) ONE (12:36)
--- NOTE | 2019-07-19 13:06 | OR.IMMED ---
Immediate Post-Op Note - Immediate Post-Op Note Pre-Op Diagnosis: Rt hip ulcer and abscess formation Post-Op Diagnosis: large abscess and ulceration Rt hip.3x3cm and 6 cm deep around the greater trochanter with ulceration and necrosis . Procedure: excisional debridement Rt hip ulcer and drainage of abscess . Surgeon/Refinery Operator Alkylation: Jeremy Specimens Removed: necrotic tissue . Complications: no Condition: Stable (the wound was packed with Iodoform)
[2019-07-19] MEDS: PROTONIX TAB 40 MG PO SCH (14:03)
[2019-07-19] MEDS: CYMBALTA PO SCH (14:03)
[2019-07-19] MEDS: XANAX PO SCH ×2 (14:05→20:59)
[2019-07-19] MEDS ORDERED: XYLOCAINE 2 % (PLAIN) ONE (15:18)
[2019-07-19] MEDS ORDERED: VERSED ONE (15:18)
[2019-07-19] MEDS ORDERED: DIPRIVAN VIAL ONE (15:18)
[2019-07-19] MEDS: K-DUR TAB 20 MEQ PO PRN (20:59)
[2019-07-19] MEDS: DESYREL PO SCH (20:59)
[2019-07-20] MEDS: D5 1/2 NS 1000 ML 1,000 ML IV SCH ×4 (04:06→20:52)
[2019-07-20] MEDS: METHADONE HCL PO SCH ×3 (05:54→21:48)
[2019-07-20 06:16] LABS: BASOPHILS % (AUTO) 0.7 % (0.2-1.0); EOSINOPHILS # (AUTO) 0.1 x10^3/uL (0.0-0.2); EOSINOPHILS % (AUTO) 1.8 % (0.9-2.9); HEMATOCRIT 27.1 % (36.0-47.0); HEMOGLOBIN 8.9 g/dL (12.0-16.0); LYMPHOCYTES # (AUTO) 1.6 X10^3/uL (1.3-2.9); LYMPHOCYTES % (AUTO) 32.7 % (21.0-51.0); MEAN CORPUSCULAR HGB CONC 32.8 g/dL (33.0-35.0); MEAN CORPUSCULAR VOLUME 76.2 fL (80.0-100.0); MEAN PLATELET VOLUME 8.7 fL (7.4-11.0); MONOCYTES # (AUTO) 0.5 x10^3/uL (0.3-0.8); MONOCYTES % (AUTO) 10.6 % (0.0-13.0); NEUTROPHILS # (AUTO) 2.7 x10^3/uL (2.2-4.8); NEUTROPHILS % (AUTO) 54.2 % (42.0-75.0); PLATELET COUNT 139 X10^3/uL (150.0-450.0); RED BLOOD COUNT 3.56 X10^6/uL (3.5-5.4); RED CELL DISTRIBUTION WIDTH 17.4 % (11.6-16.5)
[2019-07-20 07:04] LABS: ANISOCYTOSIS SLIGHT; HYPOCHROMASIA SLIGHT; PLATELET MORPHOLOGY COMMENT NORMAL (NORMAL)
[2019-07-20 07:09] LABS: ALANINE AMINOTRANSFERASE 16 Units/L (12-78); ALBUMIN 2.3 g/dL (3.4-5.0); ALKALINE PHOSPHATASE 111 Units/L (46-116); ASPARTATE AMINO TRANSFERASE 19 Units/L (15-37); BLOOD UREA NITROGEN 1 mg/dL (7-18); CALCIUM 8.4 mg/dL (8.5-10.1); CARBON DIOXIDE 28.9 mmol/L (21-32); CHLORIDE 105 mmol/L (98-107); COR CA(FOR HYPOALB) 9.8 mg/dL (8.5-10.1); CREATININE 0.57 mg/dL (0.55-1.02); SODIUM 141 mmol/L (136-145); TOTAL PROTEIN 5.4 g/dL (6.4-8.2); eGFR NON BLACK RACES > 60 (>60)
--- NOTE | 2019-07-20 08:22 | PCM.PROG ---
Progress Note Progress Note for Day of Date of Exam: 07/20/19 Subjective Subjective: Pt is a 59 yo f pmhx spinal stenosis w/ radiculopathy, admitted for R hip skin abscess with septic bursitis, chronic Rt hip ulcer, malnutrition. She is confined to bed and wheelchair with limited ambulation. -Pt reports she is feeling a little better this morning. No acute concerns overnight. Past Medical Family Social History Past Med/Fam/Surg Hx: No changes since H&P Allergies: Allergies No Known Drug Allergies Allergy (Verified 07/17/19 23:49) Review of Systems ROS: No change since H&P Vital Signs and I&O's Vital Signs: Temperature 97.4 F Pulse Rate [Left] 66 Pulse Rate 74 Respiratory Rate 20 Blood Pressure [Right Arm] 109/57 Blood Pressure 132/65 O2 Sat by Pulse Oximetry 100 Intake and Output: Intake & Output 07/17/19 07/18/19 07/19/19 07/20/19 23:59 23:59 23:59 23:59 Intake Total 2584 / 2584 3426 / 3426 942 / 942 Output Total 1900 / 1900 2275 / 2275 450 / 450 Balance 684 / 684 1151 / 1151 492 / 492 Physical Exam Oriented: Normal Eyes: Normal Ear: Normal Nose: Normal Throat: Normal Cardiovascular: Normal; negative Edema Auscultation: Bowel Sounds: Normal Tenderness: Normal Skin: Decreased Turgur and Wound (Rt hip ulcer 2x2cm with deep fluctuation ) Musculoskeletal: Right, Hip, Back:Thoracic, Back:Lumbar, Tender, Deformity, Motor Deficit (BILATERAL LOWER EXTREMITY WEAKNESS, CHRONIC) and Sensory Deficit Psychiatric: Depression Mood Description: Sad Affect: Depressed Speech Pattern: Clear and Appropriate Laboratory and Diagnostics Result Diagrams: 07/20/19 05:06 07/20/19 05:06 Labs: 07/19/19 12:35 Hip - Right Gram Stain - Final 07/19/19 12:35 Hip - Right Wound Culture - Preliminary 07/18/19 08:32 Blood Blood Culture - Preliminary 07/18/19 08:23 Blood Blood Culture - Preliminary Laboratory WBC 5.0 X10^3/uL (3.6-10.0) 07/20/19 05:06 RBC 3.56 X10^6/uL (3.5-5.4) 07/20/19 05:06 Hgb 8.9 g/dL (12.0-16.0) L 07/20/19 05:06 Hct 27.1 % (36.0-47.0) L 07/20/19 05:06 MCV 76.2 fL (80.0-100.0) L 07/20/19 05:06 MCH 25.0 pg (27.0-34.0) L 07/20/19 05:06 MCHC 32.8 g/dL (33.0-35.0) L 07/20/19 05:06 RDW 17.4 % (11.6-16.5) H 07/20/19 05:06 Plt Count 139 X10^3/uL (150.0-450.0) L 07/20/19 05:06 Plt Count Comment Decreased (ADEQUATE) A 07/20/19 05:06 MPV 8.7 fL (7.4-11.0) 07/20/19 05:06 Neut % (Auto) 54.2 % (42.0-75.0) 07/20/19 05:06 Lymph % (Auto) 32.7 % (21.0-51.0) 07/20/19 05:06 [place] % (Auto) 10.6 % (0.0-13.0) 07/20/19 05:06 Eos % (Auto) 1.8 % (0.9-2.9) 07/20/19 05:06 Baso % (Auto) 0.7 % (0.2-1.0) 07/20/19 05:06 Neut # (Auto) 2.7 x10^3/uL (2.2-4.8) 07/20/19 05:06 Lymph # (Auto) 1.6 X10^3/uL (1.3-2.9) 07/20/19 05:06 [place] # (Auto) 0.5 x10^3/uL (0.3-0.8) 07/20/19 05:06 Eos # (Auto) 0.1 x10^3/uL (0.0-0.2) 07/20/19 05:06 Baso # (Auto) 0.0 X10^3/uL (0.0-0.1) 07/20/19 05:06 Absolute Nucleated RBC 0.1 /100WBC 07/20/19 05:06 Plt Morphology Comment Normal (NORMAL) 07/20/19 05:06 RBC Morphology Abnormal (NORMAL) A 07/20/19 05:06 Hypochromasia Slight A 07/20/19 05:06 Anisocytosis Slight A 07/20/19 05:06 Sodium 141 mmol/L (136-145) 07/20/19 05:06 Corrected Sodium TNP 07/20/19 05:06 Potassium 3.8 mmol/L (3.5-5.1) 07/20/19 05:06 Chloride 105 mmol/L (98-107) 07/20/19 05:06 Carbon Dioxide 28.9 mmol/L (21-32) 07/20/19 05:06 BUN 1 mg/dL (7-18) L 07/20/19 05:06 Creatinine 0.57 mg/dL (0.55-1.02) 07/20/19 05:06 Est GFR (MDRD) Af Amer > 60 (>60) 07/20/19 05:06 Est GFR (MDRD) Non-Af > 60 (>60) 07/20/19 05:06 Glucose 85 mg/dL (65-99) 07/20/19 05:06 Calcium 8.4 mg/dL (8.5-10.1) L 07/20/19 05:06 Corrected Calcium 9.8 mg/dL (8.5-10.1) 07/20/19 05:06 Magnesium 1.9 mg/dL (1.7-2.9) 07/19/19 03:54 Total Bilirubin 0.20 mg/dL (0.2-1.0) 07/20/19 05:06 AST 19 Units/L (15-37) 07/20/19 05:06 ALT 16 Units/L (12-78) 07/20/19 05:06 Alkaline Phosphatase 111 Units/L (46-116) 07/20/19 05:06 Total Protein 5.4 g/dL (6.4-8.2) L 07/20/19 05:06 Albumin 2.3 g/dL (3.4-5.0) L 07/20/19 05:06 Globulin 3.1 g/dL (2.5-4.5) 07/20/19 05:06 Albumin/Globulin Ratio 0.7 Ratio (1.1-2.1) L 07/20/19 05:06 Tissue Pathology To follow 07/19/19 12:45 Plan (1) Abscess of right hip: Status: Acute Plan: Pt is s/p debridement of drainage of ulcer per surgery. Continue wound care. Surgery to re-evaluate on Monday. (2) Cellulitis of right hip: Status: Acute (3) Lumbar spinal stenosis: Status: Acute (4) Depression: Status: Acute
[2019-07-20] MEDS: PROTONIX TAB 40 MG PO SCH (08:23)
[2019-07-20] MEDS: CYMBALTA PO SCH (08:23)
[2019-07-20] MEDS: XANAX PO SCH ×2 (08:24→20:47)
[2019-07-20] MEDS: ROCEPHIN VIAL 1 GRAM 1 G in NS 100 ML IV + SPIKE MINIBAG* 100 ML IV SCH (08:24)
[2019-07-20] MEDS: MORPHINE SULFATE INJ 2 MG INJ IVP PRN ×2 (12:00→17:59)
[2019-07-20 20:28] LABS: BILIRUBIN,URINE NEGATIVE (NEGATIVE); BLOOD/HEMOGLOBIN,URINE 5+ (NEGATIVE); GLUCOSE, URINE NEGATIVE (NEGATIVE); KETONES,URINE NEGATIVE (NEGATIVE); LEUKOCYTE ESTERASE ,URINE 1+ (NEGATIVE); NITRITES,URINE NEGATIVE (NEGATIVE); PROTEIN,URINE NEGATIVE (NEGATIVE); UROBILINOGEN,URINE NORMAL (NORMAL)
[2019-07-20 20:36] LABS: APPEARANCE,URINE SLIGHTLY HAZY (CLEAR); BACTERIA,URINE NEGATIVE /HPF (NEGATIVE); COLOR,URINE STRAW (YELLOW); RBC,URINE 30-50 /HPF (0-3); SQUAMOUS EPITHELIAL CELL,UR NEGATIVE /HPF (NEGATIVE)
[2019-07-20] MEDS: DESYREL PO SCH (20:47)
--- NOTE | 2019-07-21 01:56 | CT ---
HISTORY: Altered mental status Study: CT brain without contrast Comparison: None Technique: Multiple axial images of the brain were obtained from the skull base to the vertex without administration of IV contrast. Findings: No acute intraparenchymal hemorrhage or mass can be identified. No extra-axial fluid collections are seen. No alteration in the attenuation of the brain parenchyma can be identified to suggest acute or subacute ischemic change. The ventricular system is symmetric and nondilated. The extracranial structures are grossly unremarkable. IMPRESSION: 1. No acute intracranial process can be identified. Reported By:
[2019-07-21] MEDS ORDERED: NICOTINE PATCH TD ONE (03:57)
[2019-07-21] MEDS: NICOTINE PATCH TD SCH ×2 (04:06→08:27)
[2019-07-21] MEDS: METHADONE HCL PO SCH ×3 (05:55→21:06)
[2019-07-21 05:56] LABS: BASOPHILS % (AUTO) 0.5 % (0.2-1.0); EOSINOPHILS # (AUTO) 0.1 x10^3/uL (0.0-0.2); EOSINOPHILS % (AUTO) 1.3 % (0.9-2.9); HEMOGLOBIN 9.7 g/dL (12.0-16.0); LYMPHOCYTES # (AUTO) 1.1 X10^3/uL (1.3-2.9); LYMPHOCYTES % (AUTO) 18.7 % (21.0-51.0); MEAN CORPUSCULAR HEMOGLOBIN 25.1 pg (27.0-34.0); MEAN CORPUSCULAR HGB CONC 33.4 g/dL (33.0-35.0); MEAN PLATELET VOLUME 8.2 fL (7.4-11.0); MONOCYTES # (AUTO) 0.4 x10^3/uL (0.3-0.8); MONOCYTES % (AUTO) 7.3 % (0.0-13.0); NEUTROPHILS # (AUTO) 4.4 x10^3/uL (2.2-4.8); NEUTROPHILS % (AUTO) 72.2 % (42.0-75.0); PLATELET COUNT 171 X10^3/uL (150.0-450.0); RED BLOOD COUNT 3.87 X10^6/uL (3.5-5.4); RED CELL DISTRIBUTION WIDTH 17.2 % (11.6-16.5); WHITE BLOOD COUNT 6.1 X10^3/uL (3.6-10.0)
[2019-07-21 06:00] LABS: BLOOD UREA NITROGEN 2 mg/dL (7-18); CALCIUM 9.2 mg/dL (8.5-10.1); CARBON DIOXIDE 29.7 mmol/L (21-32); CHLORIDE 104 mmol/L (98-107); CREATININE 0.76 mg/dL (0.55-1.02); SODIUM 142 mmol/L (136-145); eGFR NON BLACK RACES > 60 (>60)
[2019-07-21 06:20] LABS: ANISOCYTOSIS SLIGHT; HYPOCHROMASIA SLIGHT; PLATELET MORPHOLOGY COMMENT NORMAL (NORMAL)
[2019-07-21] MEDS: D5 1/2 NS 1000 ML 1,000 ML IV SCH ×5 (06:45→23:29)
--- NOTE | 2019-07-21 08:01 | PCM.PROG ---
Progress Note Progress Note for Day of Date of Exam: 07/21/19 Subjective Subjective: Pt is a 59 yo f pmhx spinal stenosis w/ radiculopathy, admitted for R hip skin abscess with septic bursitis, chronic Rt hip ulcer, malnutrition. She is confined to bed and wheelchair with limited ambulation. -Pt reports doing well yesterday. Notified by nurse pt having some sx of delirium/agitation. Vitals are stable, CT head ordered was negative for acute intracranial process. UA not c/w infection. She AO x3. Per nursing, pt's recalls similar episode in past 3 days after surgical procedure. Continue to monitor today for any change in mental status. Past Medical Family Social History Past Med/Fam/Surg Hx: No changes since H&P Allergies: Allergies No Known Drug Allergies Allergy (Verified 07/17/19 23:49) Review of Systems ROS: No change since H&P Vital Signs and I&O's Vital Signs: Temperature 98.5 F Pulse Rate [Left] 65 Pulse Rate 74 Respiratory Rate 16 Blood Pressure [Right Arm] 143/63 Blood Pressure 132/65 O2 Sat by Pulse Oximetry 96 Intake and Output: Intake & Output 07/18/19 07/19/19 07/20/19 07/21/19 23:59 23:59 23:59 23:59 Intake Total 2584 / 2584 3426 / 3426 3970 / 3970 1307 / 1307 Output Total 1900 / 1900 2275 / 2275 3150 / 3150 900 / 900 Balance 684 / 684 1151 / 1151 820 / 820 407 / 407 Physical Exam Oriented: Normal Eyes: Normal Ear: Normal Nose: Normal Throat: Normal Cardiovascular: Normal; negative Edema Auscultation: Bowel Sounds: Normal Tenderness: Normal Skin: Decreased Turgur and Wound (Rt hip ulcer 2x2cm with deep fluctuation ) Musculoskeletal: Right, Hip, Back:Thoracic, Back:Lumbar, Tender, Deformity, Motor Deficit (BILATERAL LOWER EXTREMITY WEAKNESS, CHRONIC) and Sensory Deficit Psychiatric: Depression Mood Description: Sad Affect: Depressed Speech Pattern: Clear and Delayed Laboratory and Diagnostics Result Diagrams: 07/21/19 04:55 07/21/19 04:55 Labs: 07/19/19 12:35 Hip - Right Gram Stain - Final 07/19/19 12:35 Hip - Right Wound Culture - Preliminary 07/18/19 08:32 Blood Blood Culture - Preliminary 07/18/19 08:23 Blood Blood Culture - Preliminary Laboratory WBC 6.1 X10^3/uL (3.6-10.0) 07/21/19 04:55 RBC 3.87 X10^6/uL (3.5-5.4) 07/21/19 04:55 Hgb 9.7 g/dL (12.0-16.0) L 07/21/19 04:55 Hct 29.0 % (36.0-47.0) L 07/21/19 04:55 MCV 75.0 fL (80.0-100.0) L 07/21/19 04:55 MCH 25.1 pg (27.0-34.0) L 07/21/19 04:55 MCHC 33.4 g/dL (33.0-35.0) 07/21/19 04:55 RDW 17.2 % (11.6-16.5) H 07/21/19 04:55 Plt Count 171 X10^3/uL (150.0-450.0) 07/21/19 04:55 Plt Count Comment Adequate (ADEQUATE) 07/21/19 04:55 MPV 8.2 fL (7.4-11.0) 07/21/19 04:55 Neut % (Auto) 72.2 % (42.0-75.0) 07/21/19 04:55 Lymph % (Auto) 18.7 % (21.0-51.0) L 07/21/19 04:55 [place] % (Auto) 7.3 % (0.0-13.0) 07/21/19 04:55 Eos % (Auto) 1.3 % (0.9-2.9) 07/21/19 04:55 Baso % (Auto) 0.5 % (0.2-1.0) 07/21/19 04:55 Neut # (Auto) 4.4 x10^3/uL (2.2-4.8) 07/21/19 04:55 Lymph # (Auto) 1.1 X10^3/uL (1.3-2.9) L 07/21/19 04:55 [place] # (Auto) 0.4 x10^3/uL (0.3-0.8) 07/21/19 04:55 Eos # (Auto) 0.1 x10^3/uL (0.0-0.2) 07/21/19 04:55 Baso # (Auto) 0.0 X10^3/uL (0.0-0.1) 07/21/19 04:55 Absolute Nucleated RBC 0.0 /100WBC 07/21/19 04:55 Plt Morphology Comment Normal (NORMAL) 07/21/19 04:55 RBC Morphology Abnormal (NORMAL) A 07/21/19 04:55 Hypochromasia Slight A 07/21/19 04:55 Anisocytosis Slight A 07/21/19 04:55 Sodium 142 mmol/L (136-145) 07/21/19 04:55 Corrected Sodium TNP 07/21/19 04:55 Potassium 5.0 mmol/L (3.5-5.1) 07/21/19 04:55 Chloride 104 mmol/L (98-107) 07/21/19 04:55 Carbon Dioxide 29.7 mmol/L (21-32) 07/21/19 04:55 BUN 2 mg/dL (7-18) L 07/21/19 04:55 Creatinine 0.76 mg/dL (0.55-1.02) 07/21/19 04:55 Est GFR (MDRD) Af Amer > 60 (>60) 07/21/19 04:55 Est GFR (MDRD) Non-Af > 60 (>60) 07/21/19 04:55 Glucose 91 mg/dL (65-99) 07/21/19 04:55 Calcium 9.2 mg/dL (8.5-10.1) 07/21/19 04:55 Corrected Calcium 9.8 mg/dL (8.5-10.1) 07/20/19 05:06 Magnesium 1.9 mg/dL (1.7-2.9) 07/19/19 03:54 Total Bilirubin 0.20 mg/dL (0.2-1.0) 07/20/19 05:06 AST 19 Units/L (15-37) 07/20/19 05:06 ALT 16 Units/L (12-78) 07/20/19 05:06 Alkaline Phosphatase 111 Units/L (46-116) 07/20/19 05:06 Total Protein 5.4 g/dL (6.4-8.2) L 07/20/19 05:06 Albumin 2.3 g/dL (3.4-5.0) L 07/20/19 05:06 Globulin 3.1 g/dL (2.5-4.5) 07/20/19 05:06 Albumin/Globulin Ratio 0.7 Ratio (1.1-2.1) L 07/20/19 05:06 Specimen Type Catherized urine 07/20/19 20:10 Urine Color Straw (YELLOW) 07/20/19 20:10 Urine Appearance Slightly hazy (CLEAR) 07/20/19 20:10 Urine pH 7.0 (5.0 - 8.0) 07/20/19 20:10 Ur Specific [place] 1.010 (1.000-1.030) 07/20/19 20:10 Urine Protein Negative (NEGATIVE) 07/20/19 20:10 Urine Glucose (UA) Negative (NEGATIVE) 07/20/19 20:10 Urine Ketones Negative (NEGATIVE) 07/20/19 20:10 Urine Occult Blood 5+ (NEGATIVE) 07/20/19 20:10 Urine Nitrite Negative (NEGATIVE) 07/20/19 20:10 Urine Bilirubin Negative (NEGATIVE) 07/20/19 20:10 Urine Urobilinogen Normal (NORMAL) 07/20/19 20:10 Ur Leukocyte Esterase 1+ (NEGATIVE) 07/20/19 20:10 Urine RBC 30-50 /HPF (0-3) A 07/20/19 20:10 Urine WBC 0-2 /HPF (0-5) 07/20/19 20:10 Ur Squamous Epith Cells Negative /HPF (NEGATIVE) 07/20/19 20:10 Urine Bacteria Negative /HPF (NEGATIVE) 07/20/19 20:10 Ur Culture Indicated? No/not indicated 07/20/19 20:10 Tissue Pathology To follow 07/19/19 12:45 Plan (1) Abscess of right hip: Status: Acute Plan: Pt is s/p debridement of drainage of ulcer per surgery. Continue wound care, pain control. Surgery to re-evaluate on Monday. Will continue to monitor. (2) Cellulitis of right hip: Status: Acute (3) Lumbar spinal stenosis: Status: Acute (4) Depression: Status: Acute
[2019-07-21] MEDS: CYMBALTA PO SCH (08:27)
[2019-07-21] MEDS: PROTONIX TAB 40 MG PO SCH (08:28)
[2019-07-21] MEDS: XANAX PO SCH ×2 (08:28→20:40)
[2019-07-21] MEDS: ROCEPHIN VIAL 1 GRAM 1 G in NS 100 ML IV + SPIKE MINIBAG* 100 ML IV SCH (08:28)
[2019-07-21] MEDS: LOVENOX INJ 40 MG SYR SC SCH (09:27)
[2019-07-21] MEDS: MORPHINE SULFATE INJ 2 MG INJ IVP PRN ×2 (13:12→19:42)
[2019-07-21] MEDS: DESYREL PO SCH (20:39)
[2019-07-22] MEDS: D5 1/2 NS 1000 ML 1,000 ML IV SCH ×4 (04:32→19:17)
[2019-07-22] MEDS: MORPHINE SULFATE INJ 2 MG INJ IVP PRN (04:33)
[2019-07-22] MEDS: METHADONE HCL PO SCH ×3 (05:23→21:10)
[2019-07-22 06:33] LABS: BLOOD UREA NITROGEN 1 mg/dL (7-18); CALCIUM 8.6 mg/dL (8.5-10.1); CARBON DIOXIDE 29.8 mmol/L (21-32); CHLORIDE 103 mmol/L (98-107); CREATININE 0.64 mg/dL (0.55-1.02); SODIUM 141 mmol/L (136-145); eGFR NON BLACK RACES > 60 (>60)
[2019-07-22 06:34] LABS: BASOPHILS % (AUTO) 0.7 % (0.2-1.0); EOSINOPHILS # (AUTO) 0.1 x10^3/uL (0.0-0.2); EOSINOPHILS % (AUTO) 1.5 % (0.9-2.9); HEMATOCRIT 28.5 % (36.0-47.0); HEMOGLOBIN 9.6 g/dL (12.0-16.0); LYMPHOCYTES # (AUTO) 1.1 X10^3/uL (1.3-2.9); LYMPHOCYTES % (AUTO) 17.3 % (21.0-51.0); MEAN CORPUSCULAR HGB CONC 33.5 g/dL (33.0-35.0); MEAN CORPUSCULAR VOLUME 74.5 fL (80.0-100.0); MEAN PLATELET VOLUME 8.5 fL (7.4-11.0); MONOCYTES # (AUTO) 0.5 x10^3/uL (0.3-0.8); MONOCYTES % (AUTO) 8.3 % (0.0-13.0); NEUTROPHILS # (AUTO) 4.4 x10^3/uL (2.2-4.8); NEUTROPHILS % (AUTO) 72.2 % (42.0-75.0); PLATELET COUNT 171 X10^3/uL (150.0-450.0); RED BLOOD COUNT 3.83 X10^6/uL (3.5-5.4); WHITE BLOOD COUNT 6.1 X10^3/uL (3.6-10.0)
[2019-07-22] MEDS: K-DUR TAB 20 MEQ PO PRN (06:44)
[2019-07-22 07:04] LABS: HYPOCHROMASIA SLIGHT; MICROCYTOSIS SLIGHT; PLATELET MORPHOLOGY COMMENT NORMAL (NORMAL)
[2019-07-22] MEDS: MAGNESIUM SULFATE 1 GRAM/100 mL PREMIX 1 GM/100 ML BAG IV PRN ×2 (07:49→09:23)
[2019-07-22] MEDS ORDERED: MORPHINE SULFATE INJ 2 MG INJ IVP PRN (08:39)
[2019-07-22] MEDS: CYMBALTA PO SCH (09:12)
[2019-07-22] MEDS: NICOTINE PATCH TD SCH (09:22)
[2019-07-22] MEDS: PROTONIX TAB 40 MG PO SCH (09:22)
[2019-07-22 09:23] LABS: BILIRUBIN,URINE NEGATIVE (NEGATIVE); BLOOD/HEMOGLOBIN,URINE 5+ (NEGATIVE); GLUCOSE, URINE NEGATIVE (NEGATIVE); KETONES,URINE NEGATIVE (NEGATIVE); LEUKOCYTE ESTERASE ,URINE 1+ (NEGATIVE); NITRITES,URINE NEGATIVE (NEGATIVE); PROTEIN,URINE NEGATIVE (NEGATIVE); UROBILINOGEN,URINE NORMAL (NORMAL)
[2019-07-22 09:32] LABS: APPEARANCE,URINE SLIGHTLY HAZY (CLEAR); COLOR,URINE PALE YELLOW (YELLOW)
[2019-07-22 09:33] LABS: BACTERIA,URINE NEGATIVE /HPF (NEGATIVE); RBC,URINE TNTC /HPF (0-3); SQUAMOUS EPITHELIAL CELL,UR RARE /HPF (NEGATIVE)
--- NOTE | 2019-07-22 09:37 | DR.PROGNOT ---
Hospital Progress Notes - Progress Note for Day of: Progress Note Date: 07/22/19 - Chief Complaint Chief Complaint: occasional confusion . pain is less ,. having moderate drainage from the Rt hip ulcer .. dressing and packing was changed . - Past Medical Family Social History Past Med/Fam/Surg Hx: No changes since H&P Allergies: Allergies No Known Drug Allergies Allergy (Verified 07/17/19 23:49) - Review Of Systems ROS: No change since H&P - Vital Signs Vital Signs: Temperature 98.4 F Pulse Rate [Left] 61 Pulse Rate 74 Respiratory Rate 18 Blood Pressure [Right Arm] 160/66 Blood Pressure 132/65 O2 Sat by Pulse Oximetry 96 - Physical Exam Oriented: Normal Eyes: Normal Ear: Normal Nose: Normal Throat: Normal Cardiovascular: Normal. negative: Edema GI:Auscultation: Normal GI:Palpation: Normal GI: Tenderness: Normal Skin: Decreased Turgur, Wound (2x3cm with 3cm deep Rt hip ulcer ,moderate drainage .no necrosis now .) Musculoskeletal: Right, Hip, Back:Thoracic, Back:Lumbar, Tender, Deformity, Motor Deficit (BILATERAL LOWER EXTREMITY WEAKNESS, CHRONIC), Sensory Deficit Psychiatric: Depression Mood Description: Sad Affect: Depressed Speech Pattern: Clear - Laboratory and Diagnostics Result Diagrams: 07/22/19 05:20 07/22/19 05:20 Labs: 07/19/19 12:35 Hip - Right Gram Stain - Final 07/19/19 12:35 Hip - Right Wound Culture - Preliminary 07/18/19 08:32 Blood Blood Culture - Preliminary 07/18/19 08:23 Blood Blood Culture - Preliminary Laboratory WBC 6.1 X10^3/uL (3.6-10.0) 07/22/19 05:20 RBC 3.83 X10^6/uL (3.5-5.4) 07/22/19 05:20 Hgb 9.6 g/dL (12.0-16.0) L 07/22/19 05:20 Hct 28.5 % (36.0-47.0) L 07/22/19 05:20 MCV 74.5 fL (80.0-100.0) L 07/22/19 05:20 MCH 25.0 pg (27.0-34.0) L 07/22/19 05:20 MCHC 33.5 g/dL (33.0-35.0) 07/22/19 05:20 RDW 17.0 % (11.6-16.5) H 07/22/19 05:20 Plt Count 171 X10^3/uL (150.0-450.0) 07/22/19 05:20 Plt Count Comment Adequate (ADEQUATE) 07/22/19 05:20 MPV 8.5 fL (7.4-11.0) 07/22/19 05:20 Neut % (Auto) 72.2 % (42.0-75.0) 07/22/19 05:20 Lymph % (Auto) 17.3 % (21.0-51.0) L 07/22/19 05:20 [place] % (Auto) 8.3 % (0.0-13.0) 07/22/19 05:20 Eos % (Auto) 1.5 % (0.9-2.9) 07/22/19 05:20 Baso % (Auto) 0.7 % (0.2-1.0) 07/22/19 05:20 Neut # (Auto) 4.4 x10^3/uL (2.2-4.8) 07/22/19 05:20 Lymph # (Auto) 1.1 X10^3/uL (1.3-2.9) L 07/22/19 05:20 [place] # (Auto) 0.5 x10^3/uL (0.3-0.8) 07/22/19 05:20 Eos # (Auto) 0.1 x10^3/uL (0.0-0.2) 07/22/19 05:20 Baso # (Auto) 0.0 X10^3/uL (0.0-0.1) 07/22/19 05:20 Absolute Nucleated RBC 0.0 /100WBC 07/22/19 05:20 Plt Morphology Comment Normal (NORMAL) 07/22/19 05:20 RBC Morphology Abnormal (NORMAL) A 07/22/19 05:20 Hypochromasia Slight A 07/22/19 05:20 Anisocytosis Slight A 07/21/19 04:55 Microcytosis Slight A 07/22/19 05:20 Sodium 141 mmol/L (136-145) 07/22/19 05:20 Corrected Sodium TNP 07/22/19 05:20 Potassium 3.5 mmol/L (3.5-5.1) 07/22/19 05:20 Chloride 103 mmol/L (98-107) 07/22/19 05:20 Carbon Dioxide 29.8 mmol/L (21-32) 07/22/19 05:20 BUN 1 mg/dL (7-18) L 07/22/19 05:20 Creatinine 0.64 mg/dL (0.55-1.02) 07/22/19 05:20 Est GFR (MDRD) Af Amer > 60 (>60) 07/22/19 05:20 Est GFR (MDRD) Non-Af > 60 (>60) 07/22/19 05:20 Glucose 86 mg/dL (65-99) 07/22/19 05:20 Calcium 8.6 mg/dL (8.5-10.1) 07/22/19 05:20 Corrected Calcium 9.8 mg/dL (8.5-10.1) 07/20/19 05:06 Magnesium 1.5 mg/dL (1.7-2.9) L 07/22/19 05:20 Iron 25 ug/dL (50-175) L 07/22/19 05:20 Transferrin 219 mg/dL (202-364) 07/22/19 05:20 Ferritin 51 ng/mL (8-252) 07/22/19 05:20 Total Bilirubin 0.20 mg/dL (0.2-1.0) 07/20/19 05:06 AST 19 Units/L (15-37) 07/20/19 05:06 ALT 16 Units/L (12-78) 07/20/19 05:06 Alkaline Phosphatase 111 Units/L (46-116) 07/20/19 05:06 Total Protein 5.4 g/dL (6.4-8.2) L 07/20/19 05:06 Albumin 2.3 g/dL (3.4-5.0) L 07/20/19 05:06 Globulin 3.1 g/dL (2.5-4.5) 07/20/19 05:06 Albumin/Globulin Ratio 0.7 Ratio (1.1-2.1) L 07/20/19 05:06 Vitamin B12 312 pg/mL (193-986) 07/22/19 05:20 Folate 6.2 ng/mL (>8.6) L 07/22/19 05:20 Specimen Type Catherized urine 07/22/19 09:10 Urine Color Pale yellow (YELLOW) 07/22/19 09:10 Urine Appearance Slightly hazy (CLEAR) 07/22/19 09:10 Urine pH 8.0 (5.0 - 8.0) 07/22/19 09:10 Ur Specific [place] 1.020 (1.000-1.030) 07/22/19 09:10 Urine Protein Negative (NEGATIVE) 07/22/19 09:10 Urine Glucose (UA) Negative (NEGATIVE) 07/22/19 09:10 Urine Ketones Negative (NEGATIVE) 07/22/19 09:10 Urine Occult Blood 5+ (NEGATIVE) 07/22/19 09:10 Urine Nitrite Negative (NEGATIVE) 07/22/19 09:10 Urine Bilirubin Negative (NEGATIVE) 07/22/19 09:10 Urine Urobilinogen Normal (NORMAL) 07/22/19 09:10 Ur Leukocyte Esterase 1+ (NEGATIVE) 07/22/19 09:10 Urine RBC 30-50 /HPF (0-3) A 07/20/19 20:10 Urine WBC 0-2 /HPF (0-5) 07/20/19 20:10 Ur Squamous Epith Cells Negative /HPF (NEGATIVE) 07/20/19 20:10 Urine Bacteria Negative /HPF (NEGATIVE) 07/20/19 20:10 Ur Culture Indicated? No/not indicated 07/20/19 20:10 Tissue Pathology To follow 07/19/19 12:45 - Assessment and Plan 1: Rt hip skin abscess . with septic bursitis. malnutrition . confinement to bed and wheelchair with limited ambulation ,. spinal stenosis and radiculopathy . s/p debridement . will apply wound vac when the infection is controlled . - Problem Patient Problems: Patient Problems Lumbar spinal stenosis (Acute) M48.061 Depression (Acute) F32.9
[2019-07-22] MEDS: LOVENOX INJ 40 MG SYR SC SCH (11:08)
[2019-07-22] MEDS: ROCEPHIN VIAL 1 GRAM 1 G in NS 100 ML IV + SPIKE MINIBAG* 100 ML IV SCH (11:09)
--- NOTE | 2019-07-22 11:38 | RAD ---
HISTORY: COPD, decreased lung sounds Study: Single view chest Comparison: 07/18/2019 Findings: Single portable view is submitted. Overlying wires limit evaluation. Lungs appear hyperinflated similar to prior suggesting underlying COPD. The cardiac and mediastinal contours are within normal limits. The soft tissues are unremarkable. IMPRESSION: 1. Negative limited portable chest. Reported By:
[2019-07-22] MEDS: DESYREL PO SCH (20:23)
[2019-07-23] MEDS: XANAX PO PRN ×2 (00:09→08:57)
[2019-07-23] MEDS: D5 1/2 NS 1000 ML 1,000 ML IV SCH ×2 (04:35→13:20)
[2019-07-23] MEDS: METHADONE HCL PO SCH ×3 (05:03→21:01)
[2019-07-23 05:18] LABS: BASOPHILS % (AUTO) 0.6 % (0.2-1.0); EOSINOPHILS # (AUTO) 0.1 x10^3/uL (0.0-0.2); EOSINOPHILS % (AUTO) 1.3 % (0.9-2.9); HEMATOCRIT 29.9 % (36.0-47.0); LYMPHOCYTES % (AUTO) 14.4 % (21.0-51.0); MEAN CORPUSCULAR HEMOGLOBIN 24.8 pg (27.0-34.0); MEAN CORPUSCULAR HGB CONC 33.6 g/dL (33.0-35.0); MEAN CORPUSCULAR VOLUME 73.8 fL (80.0-100.0); MEAN PLATELET VOLUME 7.8 fL (7.4-11.0); MONOCYTES # (AUTO) 0.6 x10^3/uL (0.3-0.8); MONOCYTES % (AUTO) 8.3 % (0.0-13.0); NEUTROPHILS # (AUTO) 5.2 x10^3/uL (2.2-4.8); NEUTROPHILS % (AUTO) 75.4 % (42.0-75.0); PLATELET COUNT 175 X10^3/uL (150.0-450.0); RED BLOOD COUNT 4.05 X10^6/uL (3.5-5.4); RED CELL DISTRIBUTION WIDTH 16.6 % (11.6-16.5); WHITE BLOOD COUNT 6.9 X10^3/uL (3.6-10.0)
[2019-07-23 05:30] LABS: HYPOCHROMASIA SLIGHT; MICROCYTOSIS SLIGHT; PLATELET MORPHOLOGY COMMENT NORMAL (NORMAL)
[2019-07-23 05:31] LABS: ALANINE AMINOTRANSFERASE 15 Units/L (12-78); ALBUMIN 2.6 g/dL (3.4-5.0); ALKALINE PHOSPHATASE 130 Units/L (46-116); ASPARTATE AMINO TRANSFERASE 17 Units/L (15-37); BLOOD UREA NITROGEN 1 mg/dL (7-18); CALCIUM 8.5 mg/dL (8.5-10.1); CARBON DIOXIDE 26.8 mmol/L (21-32); CHLORIDE 104 mmol/L (98-107); COR CA(FOR HYPOALB) 9.6 mg/dL (8.5-10.1); CREATININE 0.66 mg/dL (0.55-1.02); SODIUM 139 mmol/L (136-145); TOTAL PROTEIN 6.2 g/dL (6.4-8.2); eGFR NON BLACK RACES > 60 (>60)
[2019-07-23] MEDS: K-DUR TAB 20 MEQ PO PRN (06:19)
[2019-07-23] MEDS: ROCEPHIN VIAL 1 GRAM 1 G in NS 100 ML IV + SPIKE MINIBAG* 100 ML IV SCH (08:28)
[2019-07-23] MEDS: PROTONIX TAB 40 MG PO SCH (08:28)
[2019-07-23] MEDS: LOVENOX INJ 40 MG SYR SC SCH (08:29)
[2019-07-23] MEDS ORDERED: BENADRYL INJ 50 MG VIAL ONE (08:35)
[2019-07-23] MEDS: NICOTINE PATCH TD SCH (08:53)
[2019-07-23] MEDS: SEROquel TAB 25 mg PO SCH ×2 (08:56→17:16)
[2019-07-23] MEDS: CYMBALTA PO SCH (08:58)
[2019-07-23] MEDS: HEMOCYTE-PLUS PO SCH (08:58)
[2019-07-23] MEDS ORDERED: HALDOL INJ ONE (09:14)
[2019-07-23] MEDS ORDERED: BENADRYL INJ 50 MG VIAL IVP PRN (09:25)
[2019-07-23] MEDS ORDERED: HALDOL INJ IVP NR (10:00)
[2019-07-23] MEDS: TEFLARO 600 MG in NS 100 ML IV + SPIKE MINIBAG* 100 ML IV SCH ×2 (10:29→20:22)
[2019-07-23] MEDS: XANAX PO SCH ×2 (13:17→21:00)
[2019-07-23] MEDS: HALDOL INJ IM PRN (15:41)
--- NOTE | 2019-07-23 17:49 | DR.PROGNOT ---
Hospital Progress Notes - Progress Note for Day of: Progress Note Date: 07/23/19 - Chief Complaint Chief Complaint: occasional confusion . pain is less ,. having moderate drainage from the Rt hip ulcer .. dressingwas changed . - Past Medical Family Social History Past Med/Fam/Surg Hx: No changes since H&P Allergies: Allergies No Known Drug Allergies Allergy (Verified 07/17/19 23:49) - Review Of Systems ROS: No change since H&P - Vital Signs Vital Signs: Temperature 98.0 F Pulse Rate [Left] 64 Pulse Rate 74 Respiratory Rate 18 Blood Pressure [Right Arm] 146/68 Blood Pressure 132/65 O2 Sat by Pulse Oximetry 99 - Physical Exam Oriented: Normal Eyes: Normal Ear: Normal Nose: Normal Throat: Normal Cardiovascular: Normal. negative: Edema GI:Auscultation: Normal GI:Palpation: Normal GI: Tenderness: Normal Skin: Decreased Turgur, Wound (2x3cm with 3cm deep Rt hip ulcer ,moderate drainage .no necrosis now .) Musculoskeletal: Right, Hip, Back:Thoracic, Back:Lumbar, Tender, Deformity, Motor Deficit (BILATERAL LOWER EXTREMITY WEAKNESS, CHRONIC), Sensory Deficit Psychiatric: Depression Mood Description: Sad Affect: Depressed Speech Pattern: Clear - Laboratory and Diagnostics Result Diagrams: 07/23/19 05:08 07/23/19 05:08 Labs: 07/18/19 08:23 Blood Blood Culture - Final 07/18/19 08:32 Blood Blood Culture - Final 07/22/19 09:10 Urine,Clean Catch Urine Culture - Preliminary 07/19/19 12:35 Hip - Right Gram Stain - Final 07/19/19 12:35 Hip - Right Wound Culture - Preliminary Laboratory WBC 6.9 X10^3/uL (3.6-10.0) 07/23/19 05:08 RBC 4.05 X10^6/uL (3.5-5.4) 07/23/19 05:08 Hgb 10.0 g/dL (12.0-16.0) L 07/23/19 05:08 Hct 29.9 % (36.0-47.0) L 07/23/19 05:08 MCV 73.8 fL (80.0-100.0) L 07/23/19 05:08 MCH 24.8 pg (27.0-34.0) L 07/23/19 05:08 MCHC 33.6 g/dL (33.0-35.0) 07/23/19 05:08 RDW 16.6 % (11.6-16.5) H 07/23/19 05:08 Plt Count 175 X10^3/uL (150.0-450.0) 07/23/19 05:08 Plt Count Comment Adequate (ADEQUATE) 07/23/19 05:08 MPV 7.8 fL (7.4-11.0) 07/23/19 05:08 Neut % (Auto) 75.4 % (42.0-75.0) H 07/23/19 05:08 Lymph % (Auto) 14.4 % (21.0-51.0) L 07/23/19 05:08 [place] % (Auto) 8.3 % (0.0-13.0) 07/23/19 05:08 Eos % (Auto) 1.3 % (0.9-2.9) 07/23/19 05:08 Baso % (Auto) 0.6 % (0.2-1.0) 07/23/19 05:08 Neut # (Auto) 5.2 x10^3/uL (2.2-4.8) H 07/23/19 05:08 Lymph # (Auto) 1.0 X10^3/uL (1.3-2.9) L 07/23/19 05:08 [place] # (Auto) 0.6 x10^3/uL (0.3-0.8) 07/23/19 05:08 Eos # (Auto) 0.1 x10^3/uL (0.0-0.2) 07/23/19 05:08 Baso # (Auto) 0.0 X10^3/uL (0.0-0.1) 07/23/19 05:08 Absolute Nucleated RBC 0.0 /100WBC 07/23/19 05:08 Plt Morphology Comment Normal (NORMAL) 07/23/19 05:08 RBC Morphology Abnormal (NORMAL) A 07/23/19 05:08 Hypochromasia Slight A 07/23/19 05:08 Anisocytosis Slight A 07/21/19 04:55 Microcytosis Slight A 07/23/19 05:08 Sodium 139 mmol/L (136-145) 07/23/19 05:08 Corrected Sodium TNP 07/23/19 05:08 Potassium 3.4 mmol/L (3.5-5.1) L 07/23/19 05:08 Chloride 104 mmol/L (98-107) 07/23/19 05:08 Carbon Dioxide 26.8 mmol/L (21-32) 07/23/19 05:08 BUN 1 mg/dL (7-18) L 07/23/19 05:08 Creatinine 0.66 mg/dL (0.55-1.02) 07/23/19 05:08 Est GFR (MDRD) Af Amer > 60 (>60) 07/23/19 05:08 Est GFR (MDRD) Non-Af > 60 (>60) 07/23/19 05:08 Glucose 102 mg/dL (65-99) H 07/23/19 05:08 Calcium 8.5 mg/dL (8.5-10.1) 07/23/19 05:08 Corrected Calcium 9.6 mg/dL (8.5-10.1) 07/23/19 05:08 Magnesium 1.5 mg/dL (1.7-2.9) L 07/22/19 05:20 Iron 25 ug/dL (50-175) L 07/22/19 05:20 Transferrin 219 mg/dL (202-364) 07/22/19 05:20 Ferritin 51 ng/mL (8-252) 07/22/19 05:20 Total Bilirubin 0.30 mg/dL (0.2-1.0) 07/23/19 05:08 AST 17 Units/L (15-37) 07/23/19 05:08 ALT 15 Units/L (12-78) 07/23/19 05:08 Alkaline Phosphatase 130 Units/L (46-116) H 07/23/19 05:08 Total Protein 6.2 g/dL (6.4-8.2) L 07/23/19 05:08 Albumin 2.6 g/dL (3.4-5.0) L 07/23/19 05:08 Globulin 3.6 g/dL (2.5-4.5) 07/23/19 05:08 Albumin/Globulin Ratio 0.7 Ratio (1.1-2.1) L 07/23/19 05:08 Vitamin B12 312 pg/mL (193-986) 07/22/19 05:20 Folate 6.2 ng/mL (>8.6) L 07/22/19 05:20 Specimen Type Catherized urine 07/22/19 09:10 Urine Color Pale yellow (YELLOW) 07/22/19 09:10 Urine Appearance Slightly hazy (CLEAR) 07/22/19 09:10 Urine pH 8.0 (5.0 - 8.0) 07/22/19 09:10 Ur Specific [place] 1.020 (1.000-1.030) 07/22/19 09:10 Urine Protein Negative (NEGATIVE) 07/22/19 09:10 Urine Glucose (UA) Negative (NEGATIVE) 07/22/19 09:10 Urine Ketones Negative (NEGATIVE) 07/22/19 09:10 Urine Occult Blood 5+ (NEGATIVE) 07/22/19 09:10 Urine Nitrite Negative (NEGATIVE) 07/22/19 09:10 Urine Bilirubin Negative (NEGATIVE) 07/22/19 09:10 Urine Urobilinogen Normal (NORMAL) 07/22/19 09:10 Ur Leukocyte Esterase 1+ (NEGATIVE) 07/22/19 09:10 Urine RBC Tntc /HPF (0-3) A 07/22/19 09:10 Urine WBC 3-5 /HPF (0-5) 07/22/19 09:10 Ur Squamous Epith Cells Rare /HPF (NEGATIVE) 07/22/19 09:10 Urine Bacteria Negative /HPF (NEGATIVE) 07/22/19 09:10 Ur Culture Indicated? No/not indicated 07/22/19 09:10 Tissue Pathology To follow 07/19/19 12:45 - Assessment and Plan 1: Rt hip skin abscess . with septic bursitis.. s/p debridement . malnutrition . confinement to bed and wheelchair with limited ambulation ,. spinal stenosis and radiculopathy . will apply wound vac when the infection is controlled . - Problem Patient Problems: Patient Problems Sepsis (Acute) A41.9 Bursitis of right hip (Acute) M70.71 Depression (Chronic) F32.9 Lumbar spinal stenosis (Chronic) M48.061
[2019-07-23] MEDS: DESYREL PO SCH (20:26)
[2019-07-24] MEDS: HALDOL INJ IM PRN (01:25)
[2019-07-24] MEDS: METHADONE HCL PO SCH ×3 (05:05→21:22)
[2019-07-24] MEDS: XANAX PO SCH ×3 (05:05→21:23)
[2019-07-24 05:33] LABS: BASOPHILS # (AUTO) 0.1 X10^3/uL (0.0-0.1); BASOPHILS % (AUTO) 0.8 % (0.2-1.0); EOSINOPHILS # (AUTO) 0.1 x10^3/uL (0.0-0.2); EOSINOPHILS % (AUTO) 1.8 % (0.9-2.9); HEMATOCRIT 30.3 % (36.0-47.0); HEMOGLOBIN 10.1 g/dL (12.0-16.0); LYMPHOCYTES # (AUTO) 1.2 X10^3/uL (1.3-2.9); LYMPHOCYTES % (AUTO) 17.6 % (21.0-51.0); MEAN CORPUSCULAR HGB CONC 33.5 g/dL (33.0-35.0); MEAN CORPUSCULAR VOLUME 74.8 fL (80.0-100.0); MEAN PLATELET VOLUME 8.4 fL (7.4-11.0); MONOCYTES # (AUTO) 0.5 x10^3/uL (0.3-0.8); MONOCYTES % (AUTO) 7.4 % (0.0-13.0); NEUTROPHILS % (AUTO) 72.4 % (42.0-75.0); PLATELET COUNT 175 X10^3/uL (150.0-450.0); RED BLOOD COUNT 4.05 X10^6/uL (3.5-5.4); RED CELL DISTRIBUTION WIDTH 17.2 % (11.6-16.5)
[2019-07-24 05:43] LABS: ALANINE AMINOTRANSFERASE 15 Units/L (12-78); ALBUMIN 2.7 g/dL (3.4-5.0); ALKALINE PHOSPHATASE 124 Units/L (46-116); ASPARTATE AMINO TRANSFERASE 17 Units/L (15-37); BLOOD UREA NITROGEN 2 mg/dL (7-18); CALCIUM 8.8 mg/dL (8.5-10.1); CARBON DIOXIDE 28.7 mmol/L (21-32); CHLORIDE 105 mmol/L (98-107); COR CA(FOR HYPOALB) 9.8 mg/dL (8.5-10.1); CREATININE 0.69 mg/dL (0.55-1.02); SODIUM 142 mmol/L (136-145); TOTAL PROTEIN 6.3 g/dL (6.4-8.2); eGFR NON BLACK RACES > 60 (>60)
[2019-07-24 05:56] LABS: HYPOCHROMASIA SLIGHT; MICROCYTOSIS SLIGHT; PLATELET MORPHOLOGY COMMENT NORMAL (NORMAL)
[2019-07-24] MEDS: TEFLARO 600 MG in NS 100 ML IV + SPIKE MINIBAG* 100 ML IV SCH ×2 (09:11→21:28)
[2019-07-24] MEDS: HEMOCYTE-PLUS PO SCH (09:12)
[2019-07-24] MEDS: PROTONIX TAB 40 MG PO SCH (09:12)
[2019-07-24] MEDS: LOVENOX INJ 40 MG SYR SC SCH (09:13)
[2019-07-24] MEDS: NICOTINE PATCH TD SCH (09:14)
[2019-07-24] MEDS: SEROquel TAB 25 mg PO SCH ×2 (09:16→17:34)
[2019-07-24] MEDS: MAGNESIUM SULFATE 1 GRAM/100 mL PREMIX 1 GM/100 ML BAG IV PRN ×2 (09:20→11:31)
[2019-07-24] MEDS: CYMBALTA PO SCH (10:37)
[2019-07-24] MEDS: K-DUR TAB 20 MEQ PO PRN (11:34)
[2019-07-24] MEDS: DESYREL PO SCH (21:23)
[2019-07-25 05:34] LABS: ALANINE AMINOTRANSFERASE 10 Units/L (12-78); ALBUMIN 2.2 g/dL (3.4-5.0); ALKALINE PHOSPHATASE 103 Units/L (46-116); ASPARTATE AMINO TRANSFERASE 12 Units/L (15-37); BLOOD UREA NITROGEN 5 mg/dL (7-18); CALCIUM 8.4 mg/dL (8.5-10.1); CARBON DIOXIDE 26.9 mmol/L (21-32); CHLORIDE 105 mmol/L (98-107); COR CA(FOR HYPOALB) 9.8 mg/dL (8.5-10.1); CREATININE 0.79 mg/dL (0.55-1.02); SODIUM 142 mmol/L (136-145); TOTAL PROTEIN 5.3 g/dL (6.4-8.2); eGFR NON BLACK RACES > 60 (>60)
[2019-07-25 05:35] LABS: BASOPHILS # (AUTO) 0.1 X10^3/uL (0.0-0.1); BASOPHILS % (AUTO) 0.8 % (0.2-1.0); EOSINOPHILS # (AUTO) 0.1 x10^3/uL (0.0-0.2); EOSINOPHILS % (AUTO) 1.8 % (0.9-2.9); HEMATOCRIT 27.3 % (36.0-47.0); LYMPHOCYTES # (AUTO) 1.6 X10^3/uL (1.3-2.9); LYMPHOCYTES % (AUTO) 23.7 % (21.0-51.0); MEAN CORPUSCULAR HEMOGLOBIN 24.6 pg (27.0-34.0); MEAN CORPUSCULAR VOLUME 74.5 fL (80.0-100.0); MEAN PLATELET VOLUME 8.4 fL (7.4-11.0); MONOCYTES # (AUTO) 0.7 x10^3/uL (0.3-0.8); MONOCYTES % (AUTO) 9.7 % (0.0-13.0); NEUTROPHILS # (AUTO) 4.4 x10^3/uL (2.2-4.8); PLATELET COUNT 190 X10^3/uL (150.0-450.0); RED BLOOD COUNT 3.66 X10^6/uL (3.5-5.4); WHITE BLOOD COUNT 6.8 X10^3/uL (3.6-10.0)
[2019-07-25 05:49] LABS: HYPOCHROMASIA SLIGHT; MICROCYTOSIS SLIGHT; PLATELET MORPHOLOGY COMMENT NORMAL (NORMAL)
[2019-07-25] MEDS: METHADONE HCL PO SCH ×3 (06:09→21:27)
[2019-07-25] MEDS: XANAX PO SCH ×3 (06:10→21:29)
[2019-07-25] MEDS: K-DUR TAB 20 MEQ PO PRN (06:48)
[2019-07-25] MEDS ORDERED: HALDOL INJ IVP PRN (08:34)
[2019-07-25] MEDS: HEMOCYTE-PLUS PO SCH (09:06)
[2019-07-25] MEDS: PROTONIX TAB 40 MG PO SCH (09:06)
[2019-07-25] MEDS: CYMBALTA PO SCH (09:06)
[2019-07-25] MEDS: SEROquel TAB 25 mg PO SCH ×2 (09:07→17:23)
[2019-07-25] MEDS: NICOTINE PATCH TD SCH (09:07)
[2019-07-25] MEDS: LOVENOX INJ 40 MG SYR SC SCH (09:08)
[2019-07-25] MEDS: TEFLARO 600 MG in NS 100 ML IV + SPIKE MINIBAG* 100 ML IV SCH ×2 (09:08→20:51)
[2019-07-25] MEDS: DESYREL PO SCH (20:51)
[2019-07-26] MEDS: METHADONE HCL PO SCH (05:52)
[2019-07-26] MEDS: XANAX PO SCH (05:53)
[2019-07-26] MEDS: NICOTINE PATCH TD SCH (09:41)
[2019-07-26] MEDS: TEFLARO 600 MG in NS 100 ML IV + SPIKE MINIBAG* 100 ML IV SCH (09:42)
[2019-07-26] MEDS: LOVENOX INJ 40 MG SYR SC SCH (09:44)
[2019-07-26] MEDS: SEROquel TAB 25 mg PO SCH (09:44)
[2019-07-26] MEDS: PROTONIX TAB 40 MG PO SCH (09:44)
[2019-07-26] MEDS: HEMOCYTE-PLUS PO SCH (09:45)
[2019-07-26] MEDS: CYMBALTA PO SCH (09:57)
[2019-07-26 16:58] VITALS: BP 92/69
== END 2019-07-26 16:25 | disposition home health service (06) | DRG 603 ==
LOC: ER 23:23 → ICU 23:23 → MED/SURG 07-22 15:07
PROVIDERS: ADMIT Internal Medicine; ATTEND Internal Medicine
DX: L02.415 Cutaneous abscess of right lower limb; E87.6 Hypokalemia; R62.7 Adult failure to thrive; L03.115 Cellulitis of right lower limb; Z74.01 Bed confinement status; F32.9 Major depressive disorder, single episode, unspecified; M48.061 Spinal stenosis, lumbar region without neurogenic claudication
CPT/HCPCS: 36415; 70450; 71010; 71045; 73701; 80048; 80053; 81001; 82607; 82728; 82746; 83540; 83735; 84132; 84466; 85025; 87040; 87070; 87075; 87077; 87086; 87186; 87205; 88304; 96365; 96367; 96374; 97162; 97166; 99284; 99285; A4216; A4222; J3490; P9047; S0109; G0378; J0696; J0712; J1200; J1630; J1650; J2250; J2270; J2704; J3475; J7030; J7050; J7120; S5010